=== PATIENT | female | born 1970 | race Caucasian/White ===

== ENCOUNTER → 2016-12-30 | Outpatient (CLI) | payer MEDICAID ==
--- NOTE | 2016-12-30 11:39 | P.STRESS ---
- Stress Test Note Stress Test Results/Findings: Exam Performed: stress echo exercise Exam Date: 12/30/16 Height: 5 ft 8 in Weight: 68.946 kg Protocol: STRESS ECHO Stage: 4 Duration of Exercise: 10:30 Resting Heart Rate: 93 Resting Blood Pressure: 135/70 Maximum Achieved Heart Rate: 161 Maximum Achieved Blood Pressure: 167/60 85% PMHR: 149 100% PMHR: 175 METS: 12.1 Technologist Comment: Stress Test Results/Findings: Baseline rhythm sinus mechanism with normal axis and intervals. Patient exercised for 10 minutes 30 seconds reaching a peak rate of 161 bpm, equal to 92 % maximum predicted heart rate. This was terminated secondary to fatigue, there was no chest pain. EKG monitoring showed no evidence of ST segment changes. Baseline echocardiogram shows a normal wall thickening and motion, at peak exercise there was normal wall motion augmentation with no hypokinesis or dyskinesis. Impression: 1. Average exercise tolerance with no evidence of EKG abnormalities. 2. Normal stress echocardiogram with no evidence of stress induced ischemia.
--- NOTE | 2016-12-30 12:05 | ECHOF ---
Referral Reason:R00.0 tachycardia MEASUREMENTS -------- HEIGHT: 172.7 cm WEIGHT: 68.9 kg BP: WallScoring: string WallScoring: string WallScoring: string FINDINGS -------- Utilizing the standard [place] protocol the patient was exercised for 10:30 minutes, seconds, achieving a maximum heart rate of 161, which is 92 % of predicted maximal heart rate. There was physiologic heart rate and blood pressure response to exercise. Max Heart Rate: 161 % of Max Predicted Heart Rate: 92% Rest Heart Rate: 93 Rest BP: 135/70 Max BP: 167/60 Mets Achieved: 12.1 The test was stopped because of fatigue. This level of exercise represents an average exercise tolerance for age. Sinus rhythm. In response to stress, the ECG showed no ST-T wave changes (see exercise report for details). In response to stress, the ECG showed no ST-T wave changes (see exercise report for details). There were normal blood pressure and heart rate responses to stress. LV size, wall thickness and systolic function are normal, with an EF of 60%. Echo images were acquired at peak stress which demonstrated appropriate augmentation of all left ventricular segments. CONCLUSIONS -------- 1. The test was stopped because of fatigue. 2. This level of exercise represents an average exercise tolerance for age. 3. LV size, wall thickness and systolic function are normal, with an EF of 60%. 4. Echo images were acquired at peak stress which demonstrated appropriate augmentation of all left ventricular segments. 5. XXX functional exercise capacity. No ECG or 2D echocardiographic evidence of inducible ischemia to achieved workload. REWRITER: Alison Ray RDCS
== END ==
LOC: RADNMMAIN 09:46
PROVIDERS: ATTEND Family Medicine
DX: R00.0 Tachycardia, unspecified (principal)
CPT/HCPCS: 93017; 93350

== ENCOUNTER 2017-01-02 18:41 | Observation (INO) | payer MEDICAID ==
[2017-01-02] MEDS ORDERED: ASPIRIN 81 MG CHEW PO STA (19:37)
[2017-01-02] MEDS ORDERED: SODIUM CHLORIDE 0.9% 1,000 ML IV ONE (19:37)
--- NOTE | 2017-01-02 19:51 | ED ---
General Adult HPI - General Chief complaint: Arrhythmia/Palpitations Stated complaint: rapid heart rate,coming from [facility] Time Seen by Provider: 01/02/17 19:31 Source: patient Mode of arrival: ambulatory Limitations: no limitations - History of Present Illness Initial comments: Deirdre Kwan is a 86-year-old female with past medical history of hypothyroid for which she is managed on to oral medications. She presents to the emergency department today for evaluation of palpitations and tachycardia. The patient reports that she has recently been following with her primary care physician due to an elevated heart rate, she had a stress test last week which she was told she performed well and, she has not gotten official results from the stress test. Patient reports that she was in her usual state of health today, she was at work when she began experiencing palpitations and epigastric burning sensation. Patient reports she was wearing a pulse monitor indicated her heart rate was up to 142 bpm. Patient reports she feels like her heart is gone down she continues to experience an epigastric burning sensation. She denies any shortness of breath , exertional chest pain, crushing retrosternal chest pain, or any pain that radiates to the shoulders or neck. Patient has never been seen by cardiology or diagnosed with an arrhythmia. She reports that her thyroid levels were checked last month and her thyroid medication dose was decreased. MD Complaint: palpitation -: hour(s) Consistency: constant Improves with: rest Associated Symptoms: denies other symptoms Treatments Prior to Arrival: none - Related Data Home Medications Medication Instructions Recorded Confirmed Thyroid,Pork [[place] Thyroid] 120 mg PO QAM 04/24/16 01/02/17 Albuterol Inhaler [Ventolin Hfa 1 puff INHALATION RT-QID PRN 01/02/17 01/02/17 Inhaler] Liothyronine Sodium [Cytomel] 50 mcg PO QAM 01/02/17 01/02/17 Omeprazole 40 mg PO AC-BRKFST 01/02/17 01/02/17 Ranitidine HCl [Zantac] 150 mg PO BID 01/02/17 01/02/17 Vitamin B Complex 1 cap PO DAILY 01/02/17 01/02/17 Allergies Allergy/AdvReac Type Severity Reaction Status Date / Time niacin AdvReac Flushing Verified 01/02/17 20:31 [From Niaspan Extended-Release] pheniramine AdvReac Increased Verified 01/02/17 20:31 [From Theraflu Sinus and Blood Cold] Pressure phenylephrine AdvReac Increased Verified 01/02/17 20:31 [From Theraflu Sinus and Blood Cold] Pressure Review of Systems ROS Statement: Those systems with pertinent positive or pertinent negative responses have been documented in the HPI. ROS Other: All systems not noted in ROS Statement are negative. Constitutional: Denies: fever, chills, weakness, weight change Eyes: Denies: vision change Respiratory: Denies: cough, dyspnea, wheezes Cardiovascular: Reports: palpitations. Denies: chest pain, dyspnea on exertion , edema, syncope Endocrine: Denies: fatigue Gastrointestinal: Reports: other (Epigastric abdominal pain, burning). Denies: nausea, vomiting Genitourinary: Denies: urgency, dysuria Musculoskeletal: Denies: back pain Skin: Denies: rash, lesions, change in color, change in hair/nails Neurological: Denies: headache, weakness Psychiatric: Denies: anxiety, depression Hematological/Lymphatic: Denies: easy bleeding, easy bruising Past Medical History Past Medical History: Asthma, Cancer, GERD/Reflux, Hypertension, Thyroid Disorder Additional Past Medical History / Comment(s): hiatal hernia, hx. skin cancer, IBS, diverticulitis, allergy induced asthma History of Any Multi-Drug Resistant Organisms: None Reported Past Surgical History: Cholecystectomy, Tubal Ligation, Uterine Ablation Additional Past Surgical History / Comment(s): sinus surgery Past Anesthesia/Blood Transfusion Reactions: No Reported Reaction Smoking Status: Current some day smoker - Past Family History Mother Family Medical History: No Reported History General Exam Limitations: no limitations General appearance: alert, anxious Head exam: Present: atraumatic, normocephalic, normal inspection Eye exam: Present: normal appearance, PERRL, EOMI. Absent: scleral icterus, conjunctival injection, periorbital swelling ENT exam: Present: normal exam, mucous membranes moist Neck exam: Present: normal inspection. Absent: tenderness, meningismus, lymphadenopathy Respiratory exam: Present: normal lung sounds bilaterally. Absent: respiratory distress, wheezes, rales, rhonchi, stridor Cardiovascular Exam: Present: normal rhythm, tachycardia GI/Abdominal exam: Present: soft, normal bowel sounds. Absent: distended, tenderness, guarding, rebound, rigid Rectal exam: Present: deferred Back exam: Present: normal inspection Neurological exam: Present: alert, oriented X3, CN II-XII intact Psychiatric exam: Present: normal affect, normal mood Skin exam: Present: warm, dry, intact, normal color. Absent: rash Course Vital Signs 01/02/17 18:49 Temperature 98.1 F Pulse Rate 122 H Respiratory 17 Rate Blood Pressure 175/103 O2 Sat by Pulse 97 Oximetry - Reevaluation(s) Reevaluation #1: Patient was reevaluated, heart rate continues to vary between high 90s and 110. He is hypertensive. Advised patient that she has significantly elevated thyroid 01/02/17 20:57 EKG Findings - EKG Comments: EKG Findings:: EKG performed at 1932. EKG rate 109 rhythm is sinus tachycardia , normal intervals, UT 164, QRS 72, QTc 455 there is no acute ST elevations or depressions. No evidence of acute right heart strain or arrhythmia. No evidence of acute ischemia or infarction Medical Decision Making - Medical Decision Making She was seen and evaluated Signs were reviewed, patient was tachycardic and hypertensive History was obtained from the patient History is concerning for hyperthyroidism given the patient has a history of hypothyroidism and is on multiple oral thyroid medications which have recently had to be lowered and has been experiencing intermittent palpitations EKG sinus tachycardia no evidence of arrhythmia Labs with a critically low TSH indicative of hyperthyroidism Troponin and D-dimer negative Patient care was discussed with Dr. Florez who accepts admission for the patient for hyperthyroidism with palpitations and tachycardia, he requests I consult to endocrinology Dr. Lori tate and attempts were made to contact Dr. Nunez from the emergency department, however office did not offer affording contact information and her cell phone number provided to the emergency department not the correct number A consult to Dr. Sandoval was placed for her to be notified in the morning Atenolol was ordered for treatment of tachycardia in the setting of hyperthyroidism Admission orders were placed - Lab Data Result diagrams: 01/02/17 19:46 01/02/17 19:46 Lab Results 01/02/17 01/02/17 01/02/17 Range/Units 19:46 19:46 19:46 WBC 8.5 (3.8-10.6) k/uL RBC 4.50 (3.80-5.40) m/uL Hgb 14.5 (11.4-16.0) gm/dL Hct 42.3 (34.0-46.0) % MCV 94.0 (80.0-100.0) fL MCH 32.3 (25.0-35.0) pg MCHC 34.3 (31.0-37.0) g/dL RDW 12.1 (11.5-15.5) % Plt Count 323 (150-450) k/uL Neutrophils % 67 % Lymphocytes % 21 % Monocytes % 6 % Eosinophils % 3 % Basophils % 0 % Neutrophils # 5.7 (1.3-7.7) k/uL Lymphocytes # 1.8 (1.0-4.8) k/uL Monocytes # 0.5 (0-1.0) k/uL Eosinophils # 0.2 (0-0.7) k/uL Basophils # 0.0 (0-0.2) k/uL PT 10.7 (9.0-12.0) sec INR 1.1 (<1.2) APTT 24.3 (22.0-30.0) sec D-Dimer <0.17 (<0.60) mg/L FEU Sodium 142 (137-145) mmol/L Potassium 4.9 (3.5-5.1) mmol/L Chloride 105 (98-107) mmol/L Carbon Dioxide 26 (22-30) mmol/L Anion Gap 11 mmol/L BUN 17 (7-17) mg/dL Creatinine 0.70 (0.52-1.04) mg/dL Est GFR (MDRD) Af Amer >60 (>60 ml/min/1.73 sqM) Est GFR (MDRD) Non-Af >60 (>60 ml/min/1.73 sqM) Glucose 91 (74-99) mg/dL Calcium 9.9 (8.4-10.2) mg/dL Troponin I (0.000-0.034) ng/mL TSH <0.015 L (0.465-4.680) mIU/L Urine Color Urine Appearance (Clear) Urine pH (5.0-8.0) Ur Specific [place] (1.001-1.035) Urine Protein (Negative) Urine Glucose (UA) (Negative) Urine Ketones (Negative) Urine Blood (Negative) Urine Nitrite (Negative) Urine Bilirubin (Negative) Urine Urobilinogen (<2.0) mg/dL Ur Leukocyte Esterase (Negative) Urine RBC (0-5) /hpf Urine WBC (0-5) /hpf Ur Squamous Epith Cells (0-4) /hpf Urine Bacteria (None) /hpf Urine HCG, Qual (Not Detectd) 01/02/17 01/02/17 01/02/17 Range/Units 19:46 19:49 19:49 WBC (3.8-10.6) k/uL RBC (3.80-5.40) m/uL Hgb (11.4-16.0) gm/dL Hct (34.0-46.0) % MCV (80.0-100.0) fL MCH (25.0-35.0) pg MCHC (31.0-37.0) g/dL RDW (11.5-15.5) % Plt Count (150-450) k/uL Neutrophils % % Lymphocytes % % Monocytes % % Eosinophils % % Basophils % % Neutrophils # (1.3-7.7) k/uL Lymphocytes # (1.0-4.8) k/uL Monocytes # (0-1.0) k/uL Eosinophils # (0-0.7) k/uL Basophils # (0-0.2) k/uL PT (9.0-12.0) sec INR (<1.2) APTT (22.0-30.0) sec D-Dimer (<0.60) mg/L FEU Sodium (137-145) mmol/L Potassium (3.5-5.1) mmol/L Chloride (98-107) mmol/L Carbon Dioxide (22-30) mmol/L Anion Gap mmol/L BUN (7-17) mg/dL Creatinine (0.52-1.04) mg/dL Est GFR (MDRD) Af Amer (>60 ml/min/1.73 sqM) Est GFR (MDRD) Non-Af (>60 ml/min/1.73 sqM) Glucose (74-99) mg/dL Calcium (8.4-10.2) mg/dL Troponin I <0.012 (0.000-0.034) ng/mL TSH (0.465-4.680) mIU/L Urine Color Light Yellow Urine Appearance Cloudy H (Clear) Urine pH 5.5 (5.0-8.0) Ur Specific [place] 1.007 (1.001-1.035) Urine Protein Negative (Negative) Urine Glucose (UA) Negative (Negative) Urine Ketones Negative (Negative) Urine Blood Trace H (Negative) Urine Nitrite Negative (Negative) Urine Bilirubin Negative (Negative) Urine Urobilinogen <2.0 (<2.0) mg/dL Ur Leukocyte Esterase Negative (Negative) Urine RBC 1 (0-5) /hpf Urine WBC 2 (0-5) /hpf Ur Squamous Epith Cells 7 H (0-4) /hpf Urine Bacteria Rare H (None) /hpf Urine HCG, Qual Not Detected (Not Detectd) Disposition Clinical Impression: Hyperthyroidism, Palpitations, Sinus tachycardia Disposition: ADMITTED IP TO THIS [facility] Condition: Good Referrals: Maycol Nash MD [Primary Care Provider] - 1-2 days
[2017-01-02 20:03] LABS: Basophils % (A) 0 %; CH 31.7; CHCM 33.8; Eosinophils # (A) 0.2 k/uL (0-0.7); Eosinophils % (A) 3 %; HCT 42.3 % (34.0-46.0); HDW 2.34; HGB 14.5 gm/dL (11.4-16.0); Luc # (Auto) 0.28; Luc % (Auto) 3; Lymphocytes # (A) 1.8 k/uL (1.0-4.8); Lymphocytes % (A) 21 %; MCH 32.3 pg (25.0-35.0); MCHC 34.3 g/dL (31.0-37.0); Mean Platelet Volume 7.2; Monocytes # (A) 0.5 k/uL (0-1.0); Monocytes % (A) 6 %; Neutrophils # (A) 5.7 k/uL (1.3-7.7); Neutrophils % (A) 67 %; RDW 12.1 % (11.5-15.5); WBC 8.5 k/uL (3.8-10.6); WBC (Perox) 8.35
[2017-01-02 20:13] LABS: Anion Gap 11 mmol/L; Blood Urea Nitrogen 17 mg/dL (7-17); Calcium 9.9 mg/dL (8.4-10.2); Carbon Dioxide 26 mmol/L (22-30); Chloride 105 mmol/L (98-107); Glucose 91 mg/dL (74-99); Non-African American GFR(MDRD) >60 (>60 ml/min/1.73 sqM); Potassium 4.9 mmol/L (3.5-5.1); Sodium 142 mmol/L (137-145)
[2017-01-02 20:18] LABS: INR 1.1 (<1.2); Partial Thromboplastin Time 24.3 sec (22.0-30.0); Prothrombin Time 10.7 sec (9.0-12.0)
[2017-01-02 20:25] LABS: Appearance,Urine Cloudy (Clear); Bacteria,Urine Rare /hpf; Bilirubin,Urine Negative (Negative); Glucose,Urine (UA) Negative (Negative); Ketones,Urine Negative (Negative); Leukocyte Esterase,Urine Negative (Negative); Nitrite,Urine Negative (Negative); PH, Urine 5.5 (5.0-8.0); Particle Count 2352; Protein,Urine Negative (Negative); RBC,Urine 1 /hpf (0-5); Specific Gravity,Urine 1.007 (1.001-1.035); Squamous Epithelial Cell,Urine 7 /hpf (0-4); UA Billing (MACRO vs. MICRO) MICRO; Urobilinogen,Urine <2.0 mg/dL (<2.0); WBC,Urine 2 /hpf (0-5)
[2017-01-02] MEDS ORDERED: NALOXONE 0.4 MG/ML 1 ML VIAL IV PRN (21:00)
[2017-01-02] MEDS ORDERED: ATENOLOL 25 MG TAB PO STA (21:07)
--- NOTE | 2017-01-02 22:02 | XR ---
EXAMINATION TYPE: XR chest 2V DATE OF EXAM: 01/02/2017 COMPARISON: 12/08/2013 HISTORY: Pain TECHNIQUE: Frontal and lateral views of the chest are obtained. FINDINGS: There is no focal air space opacity, pleural effusion, or pneumothorax seen. The cardiac silhouette size is within normal limits. The osseous structures are intact. IMPRESSION: No acute cardiopulmonary process.
[2017-01-02 22:17] VITALS: BMI 23.1
[2017-01-03 08:28] VITALS: RESP 16
[2017-01-03] MEDS ORDERED: PANTOPRAZOLE 40 MG TABLET PO SCH (09:15)
[2017-01-03] MEDS ORDERED: THYROID, PORK 30 MG TAB PO SCH (09:15)
--- NOTE | 2017-01-03 11:26 | US ---
EXAMINATION TYPE: US thyroid st tissue head/neck DATE OF EXAM: 01/03/2017 COMPARISON: Thyroid ultrasound September 05, 2015 CLINICAL HISTORY: thyroid levels and symptoms. Hyperthyroid, pt currently on meds GLAND SIZE: Right Lobe: 5.8 x 1.8 x 2.0 cm Overall Parenchyma: heterogenous Left Lobe: 5.1 x 1.7 x 1.5 cm Overall Parenchyma: heterogeneous Isthmus Thickness: 0.4 cm Bilateral neck scanned, no evidence of lymphadenopathy. Heterogeneous thyroid bilaterally as seen on previous exams Heterogeneous slightly enlarged thyroid gland is redemonstrated without discrete solid or cystic nodu les seen. IMPRESSION: Overall stable findings, heterogeneous slightly enlarged thyroid without focal suspicious solid or cy stic nodule.
[2017-01-03 12:18] VITALS: BP 113/59; PULSE 58; TEMP 97.9
--- NOTE | 2017-01-03 14:09 | P.HPIM ---
History of Present Illness H&P Date: 01/03/17 Chief Complaint: Restless This is a 46-year-old patient of Dr. Nash. Patient chronic stable medical conditions include GERD, asthma, hiatal hernia, irritable bowel syndrome. Patient is a long-standing history of hypothyroidism. He did follow up with Dr. Magaly Mark and Dr. Nunez from endocrinology previously but Dr. Nash has been monitoring her thyroid status.. she is on both levothyroxine and Cytomel, and about a month ago her dose of Cytomel was cut back and half to 50 from 100. Patient presents with palpitations and tachycardia. Her heart rate had worked did go up 140. Patient for the longest time has not been sleeping well and barely gets in any way 4-6 hours. That too well. Patient is on her cell phone that is smart phone quite a bit. She lost about 65 pounds in the last 1 year some of that voluntarily from August of last year to August of this year. Since August her weight has remained stable. Patient just feels jittery agitated and restless. Patient also drinks a glass of wine at night. Does about 4-5 cigarettes a day. Significant past history: Asthma, GERD, hypothyroid, hiatal hernia, it irritable bowel syndrome. Review of Systems GEN.: Tired EYES: None HEENT: None NECK: None RESPIRATORY: None CARDIOVASCULAR: Palpitation GASTROINTESTINAL: . Vital bowel pattern GENITOURINARY: None MUSCULOSKELETAL: None LYMPHATICS: None HEMATOLOGICAL: None PSYCHIATRY: Anxious NEUROLOGICAL: Occasional tremors and sleeplessness Past Medical History Past Medical History: Asthma, Cancer, GERD/Reflux, Hypertension, Thyroid Disorder Additional Past Medical History / Comment(s): hiatal hernia, hx. skin cancer, IBS, diverticulitis, allergy induced asthma History of Any Multi-Drug Resistant Organisms: None Reported Past Surgical History: Cholecystectomy, Tubal Ligation, Uterine Ablation Additional Past Surgical History / Comment(s): sinus surgery Past Anesthesia/Blood Transfusion Reactions: No Reported Reaction Past Psychological History: No Psychological Hx Reported Smoking Status: Current every day smoker Past Alcohol Use History: None Reported Past Drug Use History: None Reported - Past Family History Mother Family Medical History: No Reported History Additional Family Medical History / Comment(s): Triple bypass Father Additional Family Medical History / Comment(s): Pacer Medications and Allergies Home Medications Medication Instructions Recorded Confirmed Type Thyroid,Pork [[place] Thyroid] 120 mg PO QAM 04/24/16 01/02/17 History Albuterol Inhaler [Ventolin Hfa 1 puff INHALATION RT-QID PRN 01/02/17 01/02/17 History Inhaler] Liothyronine Sodium [Cytomel] 50 mcg PO QAM 01/02/17 01/02/17 History Omeprazole 40 mg PO AC-BRKFST 01/02/17 01/02/17 History Ranitidine HCl [Zantac] 150 mg PO BID 01/02/17 01/02/17 History Vitamin B Complex 1 cap PO DAILY 01/02/17 01/02/17 History Allergies Allergy/AdvReac Type Severity Reaction Status Date / Time niacin AdvReac Flushing Verified 01/02/17 22:10 [From Niaspan Extended-Release] pheniramine AdvReac Increased Verified 01/02/17 22:10 [From Theraflu Sinus and Blood Cold] Pressure phenylephrine AdvReac Increased Verified 01/02/17 22:10 [From Theraflu Sinus and Blood Cold] Pressure Physical Exam Vitals: Vital Signs Temp Pulse Pulse Pulse Pulse Pulse Resp 01/03/17 12:00 97.9 F 63 70 58 L 16 01/03/17 08:00 98.1 F 72 16 01/03/17 04:00 18 01/03/17 03:48 97.7 F 76 18 01/02/17 23:45 18 01/02/17 22:49 18 01/02/17 22:33 97.8 F 103 H 18 01/02/17 21:14 97.8 F 94 18 01/02/17 18:49 98.1 F 122 H 17 BP BP BP BP BP Pulse Ox 01/03/17 12:00 116/70 129/77 113/59 98 01/03/17 08:00 107/58 96 01/03/17 04:00 01/03/17 03:48 112/54 96 01/02/17 23:45 01/02/17 22:49 01/02/17 22:33 133/74 97 01/02/17 21:14 151/67 99 01/02/17 18:49 175/103 97 Intake and Output VITAL SIGNS: Reviewed. BMI noted GENERAL: Average built, sitting up, anxious appearing. EYES: Pupils equal. Conjunctiva normal. HEENT: External appearance of nose and ears normal, oral cavity grossly normal. NECK: JVD not raised; masses not palpable. HEART: First and second heart sounds are normal; no edema. LUNGS: Respiratory rate normal; clear to auscultation. ABDOMEN: Soft, nontender, liver spleen not palpable, no masses palpable. LYMPHATICS: No lymph nodes palpable in the axilla and neck. PSYCH: Alert and oriented x3; mood and affect anxious appearingl. NEUROLOGICAL: Cranial nerves grossly intact; no facial asymmetry, power and sensation grossly intact, mild tremor of the outstretched hands, no exophthalmos. Results CBC & Chem 7: 01/02/17 19:46 01/02/17 19:46 Labs: White count 8.5, hemoglobin 14.5, potassium 4.9, BUN/creatinine normal Troponin negative TSH less than 0.015 free T4 0.67 that is on the low side EKG shows sinus tachycardia Assessment and Plan Plan: Assessment: -Hyper thyroidism from over replacement with levothyroxine, but associated symptoms of palpitations and tachycardia anxiety, tremors. It may be noted that patient's free T4 is on the lower side and some keep the same dose of Cytomel. Given that the TSH is also low but cut back on patient's of levothyroxine. -Chronic sleep deprivation with poor sleep hygiene leading to exertion -GERD -Hiatal hernia -Irritable bowel syndrome -Intermittent asthma controlled Plan: Patient be kept on a monitor. Does of levothyroxine that back to 100. We'll skip the dose today and tomorrow. We'll keep the patient on same dose of Cytomel. We'll have the patient follow-up with a family doctor in about 2 weeks ' time. Discussed extensively with the patient about sleep hygiene including not being on a smart phone at night. Care was discussed with the patient and her friend at the bedside. Questions were answered.
[2017-01-04] MEDS ORDERED: ENOXAPARIN 40 MG/0.4 ML SYRINGE SQ SCH (09:00)
--- NOTE | 2017-01-04 11:28 | P.DS ---
Providers Date of admission: 01/02/17 21:11 Expected date of discharge: 01/03/17 Attending physician: Perry Florez Consults: 01/02/17 20:59 Consult Physician Urgent Consulting Provider: Padmini Sandoval Consult Reason/Comments: hyperthyroid, tachycardia Do you want consulting provider notified?: Yes, Notify in am Primary care physician: Maycol Nash [facility] Course: This is a 46-year-old patient of Dr. Nash. Patient chronic stable medical conditions include GERD, asthma, hiatal hernia, irritable bowel syndrome. Patient is a long-standing history of hypothyroidism. He did follow up with Dr. Ananth Mark and Dr. Sandoval from endocrinology previously but patient decided against following with them and now follows with her PCP /Dr. Nash has been monitoring her thyroid status.. she is on both levothyroxine and Cytomel, and about a month ago her dose of Cytomel was cut back half to 50 from 100. Patient presents with palpitations and tachycardia. Her heart rate had worked did go up 140. Patient for the longest time has not been sleeping well and barely gets in about 4-6 hours. Patient is on her cell phone that is smart phone quite a bit. She lost about 65 pounds in the last 1 year some of that voluntarily from August of last year to August of this year. Since August her weight has remained stable. Patient just feels jittery agitated and restless. Patient also drinks a glass of wine at night. Does smoke about 4-5 cigarettes a day Patient's TSH came back as less than 0.0015 and free T4 was low at 0.67. Had a very lengthy discussion with the patient. At this point and decided to cut back on the levothyroxine 200 g a day. Patient should have a repeat thyroid function tested in about 3-4 weeks. Had a very lengthy discussion about sleep hygiene. EKG showed sinus tachycardia. On examination: Lungs are clear. Cardiovascular first seconds are normal. Psych anxious appearing. Final diagnoses: -Hyper thyroidism from over replacement with levothyroxine, with associated symptoms of palpitations and tachycardia anxiety, tremors. It may be noted that patient's free T4 is on the lower side and hence will keep the same dose of Cytomel. Given that the TSH is also low but cut back on patient's of levothyroxine. -Chronic sleep deprivation with poor sleep hygiene leading to exhaustion -GERD -Hiatal hernia -Irritable bowel syndrome -Intermittent asthma controlled Patient Condition at Discharge: Good Plan - Discharge Summary New Discharge Prescriptions: New Thyroid,Pork [[place] Thyroid] 90 mg PO DAILY #30 tab Continue Vitamin B Complex 1 cap PO DAILY Albuterol Inhaler [Ventolin Hfa Inhaler] 1 puff INHALATION RT-QID PRN PRN Reason: Dyspnea Omeprazole 40 mg PO AC-BRKFST Liothyronine Sodium [Cytomel] 50 mcg PO QAM Discontinued Thyroid,Pork [[place] Thyroid] 120 mg PO QAM Ranitidine HCl [Zantac] 150 mg PO BID Discharge Medication List Albuterol Inhaler [Ventolin Hfa Inhaler] 1 puff INHALATION RT-QID PRN 01/02/17 [ History] Liothyronine Sodium [Cytomel] 50 mcg PO QAM 01/02/17 [History] Omeprazole 40 mg PO AC-BRKFST 01/02/17 [History] Vitamin B Complex 1 cap PO DAILY 01/02/17 [History] Thyroid,Pork [[place] Thyroid] 90 mg PO DAILY #30 tab 01/03/17 [Rx] Follow up Appointment(s)/Referral(s): Maycol Nash MD [Primary Care Provider] - 1 Week Patient Instructions/Handouts: Hyperthyroidism (GEN) Activity/Diet/Wound Care/Special Instructions: resume new dose of levothyroxine from thursday Discharge Disposition: HOME SELF-CARE
== END 2017-01-03 14:50 | disposition home or self-care (01) ==
LOC: EC 18:41 → 3OBS 21:11
PROVIDERS: ADMIT Hospitalist; ATTEND Hospitalist
DX: E05.00 Thyrotoxicosis with diffuse goiter without thyrotoxic crisis or storm (principal); R00.2 Palpitations; R00.0 Tachycardia, unspecified; F41.9 Anxiety disorder, unspecified; R25.1 Tremor, unspecified; Z72.820 Sleep deprivation; K21.9 Gastro-esophageal reflux disease without esophagitis; K44.9 Diaphragmatic hernia without obstruction or gangrene; J45.20 Mild intermittent asthma, uncomplicated; R45.1 Restlessness and agitation; E03.9 Hypothyroidism, unspecified; I10 Essential (primary) hypertension; J45.909 Unspecified asthma, uncomplicated; K58.9 Irritable bowel syndrome, unspecified; K57.92 Diverticulitis of intestine, part unspecified, without perforation or abscess without bleeding; Z85.828 Personal history of other malignant neoplasm of skin; Z88.8 Allergy status to other drugs, medicaments and biological substances; Z79.899 Other long term (current) drug therapy; Z90.49 Acquired absence of other specified parts of digestive tract; F17.210 Nicotine dependence, cigarettes, uncomplicated
CPT/HCPCS: 99285 ×2; 36415; 93005; 85379; 84439; 83880; 80048; 84443; 84484; 85025; 85610; 85730; 81001; 81025; 71020; 76536; G0378 ×2

== ENCOUNTER → 2017-04-29 | Outpatient (CLI) | payer MEDICAID ==
[2017-04-29 08:24] LABS: Basophils # (A) 0.1 k/uL (0-0.2); Basophils % (A) 1 %; CH 33.5; Eosinophils # (A) 0.2 k/uL (0-0.7); Eosinophils % (A) 3 %; HCT 44.9 % (34.0-46.0); HDW 2.11; HGB 14.2 gm/dL (11.4-16.0); Luc # (Auto) 0.16; Luc % (Auto) 2; Lymphocytes # (A) 1.8 k/uL (1.0-4.8); Lymphocytes % (A) 20 %; MCH 33.3 pg (25.0-35.0); MCHC 31.7 g/dL (31.0-37.0); MCV 105.2 fL (80.0-100.0); Macrocytosis Slight; Mean Platelet Volume 6.5; Monocytes # (A) 0.5 k/uL (0-1.0); Monocytes % (A) 6 %; Neutrophils # (A) 6.4 k/uL (1.3-7.7); Neutrophils % (A) 69 %; RBC 4.26 m/uL (3.80-5.40); RDW 12.5 % (11.5-15.5); WBC 9.2 k/uL (3.8-10.6); WBC (Perox) 9.54
[2017-04-29 09:54] LABS: ALT 52 U/L (9-52); AST 32 U/L (14-36); Alkaline Phosphatase 88 U/L (38-126); Anion Gap 7 mmol/L; Blood Urea Nitrogen 19 mg/dL (7-17); Calcium 9.3 mg/dL (8.4-10.2); Carbon Dioxide 26 mmol/L (22-30); Chloride 105 mmol/L (98-107); Cholesterol 239 mg/dL (<200); Glucose 93 mg/dL (74-99); HDL Cholesterol 87 mg/dL (40-60); Non-African American GFR(MDRD) >60 (>60 ml/min/1.73 sqM); Potassium 4.7 mmol/L (3.5-5.1); Sodium 138 mmol/L (137-145); Total Bilirubin 0.6 mg/dL (0.2-1.3); Total Protein 7.1 g/dL (6.3-8.2)
== END | disposition home or self-care (01) ==
LOC: LABWHC1 07:42
PROVIDERS: ATTEND Family Medicine
DX: Z00.00 Encounter for general adult medical examination without abnormal findings (principal); E03.9 Hypothyroidism, unspecified; E89.41 Symptomatic postprocedural ovarian failure
CPT/HCPCS: 36415; 80053; 80061; 82040; 82626; 82672; 84270; 84403; 84439; 84443; 84481; 85025

== ENCOUNTER → 2017-05-20 | Outpatient (CLI) | payer MEDICAID | END | disposition home or self-care (01) | LOC: LABWHC1 07:17 | PROVIDERS: ATTEND Family Medicine | DX: E05.90 Thyrotoxicosis, unspecified without thyrotoxic crisis or storm (principal); E89.41 Symptomatic postprocedural ovarian failure | CPT/HCPCS: 36415; 82626; 84439; 84443 ==

== ENCOUNTER → 2017-06-08 | Outpatient (CLI) | payer MEDICAID ==
--- NOTE | 2017-06-08 12:04 | US ---
EXAMINATION TYPE: US abdomen complete DATE OF EXAM: 06/08/2017 COMPARISON: 10/19/2011 CLINICAL HISTORY: 47-year-old female E89.41 POSTPROCEDURAL OVARIAN FAILURE,E34.9 ENDOCRINE DISORDER. TECHNIQUE: Multiple sonographic images of the abdomen are obtained. FINDINGS: Liver Length: 17.5 cm Gallbladder: surgically absent CBD: 0.5 cm Spleen: 9.8 cm Right Kidney: 12.0 x 5.6 x 5.3 cm Left Kidney: 12.3 x 6.0 x 4.9 cm Pancreas: Only a small portion of the pancreatic neck and body are visualized. Remainder suboptimall y visualized due to shadowing from bowel gas. Liver: There is a 1.9 x 1.6 echogenic lesion in the posterior right hepatic lobe. No other focal les ion is seen. A similar 1.5 cm lesion was present back in 2011. Findings suggest a benign hemangioma which is slightly increased in size. Gallbladder: Surgically absent Evidence for sonographic Allen's sign: No CBD: wnl Spleen: wnl Right Kidney: No hydronephrosis. Left Kidney: No hydronephrosis . Upper IVC: wnl Abd Aorta: wnl IMPRESSION: 1. A 1.9 cm echogenic lesion posterior right liver lobe suggestive of a benign hemangioma, minimally enlarged from 2012. 2. Status post cholecystectomy. No biliary ductal dilatation.
--- NOTE | 2017-06-08 12:24 | US ---
EXAMINATION TYPE: US pelvic complete DATE OF EXAM: 06/08/2017 COMPARISON: NONE CLINICAL HISTORY: 47-year-old female E89.41 POSTPROCEDURAL OVARIAN FAILURE,E34.9 ENDOCRINE DISORDER. History of 'tubal ablation' per patient, DHEA levels elevated TECHNIQUE: Transabdominal (TA) Findings: Uterus: Anteroverted and retroflexed measuring 9.1 x 4.2 x 5.4 cm. The myometrium is mildly heterogen eous. Endometrial stripe is thin and difficult to clearly delineate. It is measured at 2.8 mm on transverse images. Right Ovary: 2.8 x 2.0 x 2.7 cm for a volume of 7.6 mL Left Ovary: 2.8 x 1.7 x 2.8 cm for a volume of 6.7 mL. No evident adnexal abnormality or cul-de-sac free fluid. IMPRESSION: 1. Endometrial stripe is very thin and difficult to clearly delineate. Query history of prior endomet rial ablation. Patient reports a tubal ablation. 2. Normal-sized ovaries. No pelvic free fluid.
== END | disposition home or self-care (01) ==
LOC: RADUSWWP 09:03
PROVIDERS: ATTEND Family Medicine
DX: K76.9 Liver disease, unspecified (principal); E34.9 Endocrine disorder, unspecified; Z98.890 Other specified postprocedural states; Z90.49 Acquired absence of other specified parts of digestive tract
CPT/HCPCS: 76700; 76856

== ENCOUNTER → 2017-07-10 | Outpatient (CLI) | payer MEDICAID | END | disposition home or self-care (01) | LOC: LABWHC1 13:01 | PROVIDERS: ATTEND Otolaryngology Facial Plastic Surgery | DX: M35.00 Sjogren syndrome, unspecified (principal) | CPT/HCPCS: 36415; 86235 ==

== ENCOUNTER → 2017-07-14 | Outpatient (CLI) | payer MEDICAID ==
--- NOTE | 2017-07-15 13:42 | MM ---
Reason for exam: screening (asymptomatic). Last mammogram was performed 1 year and 10 months ago. History: Patient has history of other cancer at age 43. Took hormonal contraceptives for 7 years beginning at age 21. Taking other hormone. Physical Findings: A clinical breast exam by your physician is recommended on an annual basis and results should be correlated with mammographic findings. MG 3D Screening Mammo W/Cad Bilateral CC and MLO view(s) were taken. Prior study comparison: September 24, 2015, bilateral MG work up mamm w CAD BILAT. September 12, 2015, bilateral MG screening mammo w CAD. March 09, 2014, bilateral MG diagnostic mammo w CAD UVALDO. The breast tissue is heterogeneously dense. This may lower the sensitivity of mammography. Finding: There are a few typically benign round calcifications in both breasts. There is no discrete abnormality. ASSESSMENT: Benign, BI-RAD 2 RECOMMENDATION: Routine screening mammogram of both breasts in 1 year.
== END | disposition home or self-care (01) ==
LOC: RADMAMWWP 06:50
PROVIDERS: ATTEND Obstetrics & Gynecology
DX: Z12.31 Encounter for screening mammogram for malignant neoplasm of breast (principal)
CPT/HCPCS: 77063; 77067

== ENCOUNTER → 2017-07-17 | Outpatient (CLI) | payer MEDICAID ==
--- NOTE | 2017-07-17 09:42 | CT ---
EXAMINATION TYPE: CT sinus wo con DATE OF EXAM: 07/17/2017 COMPARISON: 02/14/2010 HISTORY: chronic sinusitis CT DLP: 588 mGycm. Automated Exposure Control for Dose Reduction was Utilized. TECHNIQUE: CT scan of the sinuses is performed without contrast, axial images are obtained, coronal r eformatted images are also reviewed. FINDINGS: Bilateral antrostomy defects are seen. There is mild left and scant right maxillary mucosal thickening and mild ethmoidal mucosal thickening. The frontal sinuses are well aerated. There is ant erior left nasal septal deviation and a small 1 to 2 mm nasal septal spur. There is moderate circumfe rential mucosal thickening of the sphenoid sinus. High density is seen on soft tissue windows within the sphenoid sinus mucosal thickening suggestive of an atypical etiology such as fungal infection. Ma stoid air cells and middle ear cavities are well aerated. Scant atherosclerosis is seen at the supraclinoid portions of the internal carotid arteries bilateral ly. The calvarium is intact. The ostiomeatal complexes are patent bilaterally. The globes are intact. Extraocular muscles are symmetric. Lenses are in place. There is right inferior nasal turbinate muco danielle hypertrophy. Exam is not optimized for evaluation of the intracranial structures. IMPRESSION: 1. Similar-appearing moderate chronic sinusitis with postsurgical changes of the sinuses. High densit y is seen circumferentially within the sphenoid sinus suggestive of atypical infection such as fungal infection. 2. Ostiomeatal complexes, surgically widened, are patent. 3. Right inferior nasal turbinate mucosal hypertrophy. 4. Anterior leftward nasal septal deviation.
== END | disposition home or self-care (01) ==
LOC: RADCTMAIN 07:33
PROVIDERS: ATTEND Otolaryngology Facial Plastic Surgery
DX: J32.9 Chronic sinusitis, unspecified (principal); J34.3 Hypertrophy of nasal turbinates; J34.2 Deviated nasal septum; Z98.890 Other specified postprocedural states
CPT/HCPCS: 70486

== ENCOUNTER → 2017-10-12 | Outpatient (CLI) | payer MEDICAID ==
[2017-10-12 09:37] LABS: Basophils % (A) 0 %; Eosinophils # (A) 0.3 k/uL (0-0.7); Eosinophils % (A) 4 %; HCT 44.7 % (34.0-46.0); HGB 14.2 gm/dL (11.4-16.0); Lymphocytes # (A) 1.8 k/uL (1.0-4.8); Lymphocytes % (A) 24 %; MCH 31.5 pg (25.0-35.0); MCHC 31.7 g/dL (31.0-37.0); MCV 99.3 fL (80.0-100.0); Mean Platelet Volume 7.6; Monocytes # (A) 0.6 k/uL (0-1.0); Monocytes % (A) 7 %; Neutrophils # (A) 4.5 k/uL (1.3-7.7); Neutrophils % (A) 61 %; Platelet Count 393 k/uL (150-450); Prothrombin Time 9.8 sec (9.0-12.0); RDW 12.5 % (11.5-15.5); WBC 7.3 k/uL (3.8-10.6)
[2017-10-12 09:55] LABS: ALT 61 U/L (9-52); AST 34 U/L (14-36); Albumin 4.3 g/dL (3.5-5.0); Alkaline Phosphatase 112 U/L (38-126); Anion Gap 16 mmol/L; Blood Urea Nitrogen 14 mg/dL (7-17); Calcium 9.6 mg/dL (8.4-10.2); Carbon Dioxide 26 mmol/L (22-30); Chloride 100 mmol/L (98-107); Glucose 98 mg/dL (74-99); Potassium 4.8 mmol/L (3.5-5.1); Sodium 142 mmol/L (137-145); Total Bilirubin 0.6 mg/dL (0.2-1.3); Total Protein 7.4 g/dL (6.3-8.2)
[2017-10-12 10:03] LABS: T4, Free (Free Thyroxine) 1.55 ng/dL (0.78-2.19)
[2017-10-12 17:24] LABS: DHEA Sulfate 203.6 ug/dL (26.0-430.0)
[2017-10-13 11:38] LABS: Anti-Thrombin III Activity 105 % (79-109)
[2017-10-15 21:45] LABS: Testosterone, Free, LC/MS/MS 3.4 pg/mL (0.2-5.0)
== END | disposition home or self-care (01) ==
LOC: LABWHC1 06:59
PROVIDERS: ATTEND Family Medicine
DX: E03.9 Hypothyroidism, unspecified (principal); R04.0 Epistaxis; E89.41 Symptomatic postprocedural ovarian failure
CPT/HCPCS: 36415; 80053; 82040; 82626; 82627; 82672; 84270; 84403; 84439; 84443; 85025; 85245; 85300; 85610; 86038

== ENCOUNTER → 2018-03-05 | Outpatient (CLI) | payer MEDICAID ==
--- NOTE | 2018-03-05 13:52 | US ---
EXAMINATION TYPE: US axilla LT DATE OF EXAM: 03/05/2018 COMPARISON: US 2013, mammogram 07/14/2017 CLINICAL HISTORY: R59.0 Localized enlarged lymph nodes. Palpable left axilla and fullness at 1:00 zon e BC Couple of axillary nodes seen in left axilla with larger node = 1.6 x1.3 x 0.8cm. Dense breast tissue seen at 1:00 zone BC. IMPRESSION: 1. Axillary adenopathy, appears otherwise unremarkable. 2. Benign findings. Recommendations: 1. Clinical management of palpable fullness.
== END | disposition home or self-care (01) ==
LOC: RADUSWWP 07:37
PROVIDERS: ATTEND Family Medicine
DX: R59.0 Localized enlarged lymph nodes (principal)

== ENCOUNTER → 2018-05-11 | Outpatient (CLI) | payer MEDICAID ==
[2018-05-11 19:07] LABS: T4, Free (Free Thyroxine) 1.7 ng/dL (0.80-1.80)
== END | disposition home or self-care (01) ==
LOC: LABWHC1 09:30
PROVIDERS: ATTEND Family Medicine
DX: N95.1 Menopausal and female climacteric states (principal); E03.9 Hypothyroidism, unspecified
CPT/HCPCS: 36415; 82672; 84270; 84402; 84439; 84443

== ENCOUNTER → 2018-07-27 | Outpatient (CLI) | payer MEDICAID ==
--- NOTE | 2018-07-27 13:55 | US ---
EXAMINATION TYPE: US abdomen complete DATE OF EXAM: 07/27/2018 COMPARISON: US CLINICAL HISTORY: C22.9 malignant neoplasm of liver. Liver lesion. EXAM MEASUREMENTS: Liver Length: 10.2 cm Gallbladder Wall: Surgically absent cm CBD: 0.5 cm Spleen: 9.9 cm Right Kidney: 11.7 x 4.3 x 5.2 cm Left Kidney: 12.3 x 5.3 x 5.5 cm Pancreas: Tail obscured by overlying bowel gas Liver: echogenic lesion rt lobe measures 1.4 x 1.2 x 1.6 cm Gallbladder: Surgically absent CBD: wnl Spleen: wnl Right Kidney: No hydronephrosis or masses seen Left Kidney: No hydronephrosis or masses seen Upper IVC: wnl Abd Aorta: wnl IMPRESSION: 1. Echogenic foci within the liver may be a hemangioma. CT with contrast could be performed for addit ional evaluation. 2. Right upper quadrant ultrasound is otherwise unremarkable.
== END | disposition home or self-care (01) ==
LOC: RADUSWWP 06:50
PROVIDERS: ATTEND Family Medicine
DX: C22.9 Malignant neoplasm of liver, not specified as primary or secondary (principal)
CPT/HCPCS: 76700

== ENCOUNTER → 2018-07-31 | Outpatient (CLI) | payer MEDICAID ==
--- NOTE | 2018-07-31 09:00 | XR ---
EXAMINATION TYPE: XR chest 2V DATE OF EXAM: 07/31/2018 COMPARISON: Chest radiograph 01/02/2017 HISTORY: Cough TECHNIQUE: Frontal and lateral views of the chest are obtained. FINDINGS: There is no focal air space opacity, pleural effusion, or pneumothorax seen. The cardiac silhouette size is within normal limits. The osseous structures are intact. IMPRESSION: No acute cardiopulmonary process. No significant interval change.
[2018-07-31 09:12] LABS: Appearance,Urine Clear (Clear); Bacteria,Urine Rare /hpf; Bilirubin,Urine Negative (Negative); Blood,Urine Small (Negative); Color,Urine Yellow; Glucose,Urine (UA) Negative (Negative); Ketones,Urine Negative (Negative); Leukocyte Esterase,Urine Small (Negative); Mucus,Urine Occasional /hpf; Nitrite,Urine Negative (Negative); Protein,Urine Negative (Negative); RBC,Urine 20 /hpf (0-5); Specific Gravity,Urine 1.021 (1.001-1.035); Squamous Epithelial Cell,Urine 1 /hpf (0-4); Urobilinogen,Urine <2.0 mg/dL (<2.0); WBC,Urine 1 /hpf (0-5)
[2018-07-31 09:21] LABS: INR 0.9 (<1.2); Partial Thromboplastin Time 26.7 sec (22.0-30.0); Prothrombin Time 9.9 sec (9.0-12.0)
== END | disposition home or self-care (01) ==
LOC: LABPAT 08:03
PROVIDERS: ATTEND Orthopaedic Surgery Orthopaedic Surgery of the Spine
DX: Z01.818 Encounter for other preprocedural examination (principal); Z01.812 Encounter for preprocedural laboratory examination; M51.17 Intervertebral disc disorders with radiculopathy, lumbosacral region
CPT/HCPCS: 71046; 81001; 85610; 85730; 86850; 86900; 86901; 87070; 93005

== ENCOUNTER 2018-08-11 10:50 | Day surgery (SDC) | payer MEDICAID ==
[~2018-08-11 10:50] MED LIST: DEXAMETHASONE SOD PHOSPHATE 10 MG/ML 1 ML VIAL IV ONE; LACTATED RINGERS 1,000 ML IV SCH; LIDOCAINE 1% 20 ML VIAL (10MG/ML) FOR IV START INTRADERMA PRN; MIDAZOLAM (PF) 2 MG/2 ML VIAL IV PRN; SODIUM CHLORIDE 0.9% IRRIGATIO 1,000 ML IRRIGATION ONE; ceFAZolin IN SWFI 2 GM/20 ML SYRINGE IVP ONE; fentaNYL (PF) 50 MCG/ML 2 ML AMP IV PRN
[2018-08-11] MEDS ORDERED: ONDANSETRON 4 MG/2 ML VIAL IVP ONE (12:03)
[2018-08-11] MEDS ORDERED: PROPOFOL 10 MG/ML 20 ML VIAL IV ONE (13:47)
[2018-08-11] MEDS ORDERED: NEOSTIGMINE 1 MG/ML 10 ML VIAL ONE (13:47)
[2018-08-11] MEDS ORDERED: ROCURONIUM BROMIDE 10 MG/ML 10 ML VIAL IV ONE (13:47)
[2018-08-11] MEDS ORDERED: GLYCOPYRROLATE 0.2 MG/ML 2 ML VIAL ONE (13:47)
[2018-08-11] MEDS ORDERED: SUCCINYLCHOLINE CHLORIDE 100 MG/5 ML SYR IV ONE (13:47)
[2018-08-11] MEDS ORDERED: fentaNYL (PF) 50 MCG/ML 2 ML AMP ONE (13:47)
[2018-08-11] MEDS ORDERED: MIDAZOLAM 2 MG/2 ML VIAL ONE (13:47)
[2018-08-11] MEDS ORDERED: LIDOCAINE 1% INJ 10MG/ML (20 ML MDV) ONE (13:47)
[2018-08-11] MEDS ORDERED: GELATIN SPONGE,ABSORB (LARGE) 1 EACH SPONGE TOPICAL ONE (14:15)
[2018-08-11] MEDS ORDERED: THROMBIN (BOVINE) 5,000 UNIT VIAL TOPICAL ONE (14:15)
[2018-08-11] MEDS ORDERED: methylPREDNISolone ACETATE 40 MG/ML 1 ML VIAL MISCELLANE ONE (14:15)
[2018-08-11] MEDS ORDERED: LIDOCAINE 0.5%-EPI 1:200,000 50 ML VIAL SQ ONE (14:15)
[2018-08-11] MEDS ORDERED: BACITRACIN 50,000 UNIT, POLYMYXIN B 500,000 UNIT in SODIUM CHLORIDE 0.9% IRRIGATIO 1,00... IRRIGATION ONE (14:24)
--- NOTE | 2018-08-11 14:40 | XR ---
EXAMINATION TYPE: XR lumbar spine 1V DATE OF EXAM: 08/11/2018 COMPARISON: NONE HISTORY: Intraoperative image TECHNIQUE: Single view submitted FINDINGS: Resolution is markedly limited. There appears to be a surgical instrument overlying the pos terior region of the lower lumbar spine or lumbosacral junction. Resolution is markedly limited. IMPRESSION: Intraoperative localization
--- NOTE | 2018-08-11 14:41 | FL ---
EXAMINATION TYPE: FL guidance operating room DATE OF EXAM: 08/11/2018 HISTORY: Flouroscopy time 3 seconds of fluoroscopy provided. IMPRESSION: 1. Fluoroscopy time.
[2018-08-11] MEDS ORDERED: LACTATED RINGERS 1,000 ML IV ONE (14:44)
--- NOTE | 2018-08-11 15:02 | P.OP ---
Date of Procedure: 08/11/18 Preoperative Diagnosis: Herniated nucleus pulposis L5-S1 Left lower extremity radiculopathy Left lower extremity weakness Postoperative Diagnosis: Same Anesthesia: GETA Pathology: none sent Condition: stable Disposition: PACU Description of Procedure: BRIEF OPERATIVE NOTE Preoperative Diagnosis:Herniated nucleus pulposis L5-S1 Left lower extremity radiculopathy Left lower extremity weakness Postoperative Diagnosis: Same Procedure: Laminectomy and decompression L5-S1 Discectomy for decompression L5-S1 Surgeon: Dr. Hackett Director Transportation: Rip Melvin is present throughout the entire the case persistence during positioning, dissection, exposure, visualization, and all crucial elements of the case as well as closure. Anesthesia: General anesthesia Estimated blood loss: Approximately 20 mL Complications: None apparent Components implanted: None Disposition: To recovery room in good stable condition. OPERATIVE INDICATIONS The patient has been having issues in their lower back and lower extremities. She is having severe left lower extremity radicular symptoms with numbness tingling and some weakness at her left leg. She was found have a large extruded disc herniation at L5-S1 on the left which correlated well with her low back and left lower extremity symptoms. The patient has been through conservative treatment. She is not having any prolonged benefit despite aggressive conservative treatment. We discussed various treatment options including surgery, and the patient wishes to proceed with surgery We discussed the risk, patient's alternatives and benefits of surgery including but not limited to, risk of bleeding risk of infection, risk of need for further surgery , risk of decreased, loss of motion, loss of function, nerve damage, paralysis, heart attack, blindness and . OPERATIVE SUMMARY After discussing all the risks, patient alternatives and benefits at length, the patient elected to proceed with surgical intervention, signed informed consent, and presented for their procedure. The patient was seen and examined in the preoperative holding area and the surgical site was marked. The patient was given antibiotics and brought to the operating room. The patient was sedated and intubated by anesthesia in standard fashion. The patient was positioned on to the operating room table in a prone position on the appropriate frame which was well-padded and well molded. We were careful to pad any bony prominences and pressure points. We were careful to maintain the patient's cervical spine and good neutral alignment and position throughout. The patient was prepped and draped in a normal standard fashion. An appropriate timeout and keystone protocol performed. We were able to proceed with the surgery. Fluoroscopy was utilized to establish the appropriate level. The local wound area was infiltrated with local anesthetic. An incision was made at the midline longitudinally over the appropriate levels at L5-S1 approximately 2 cm in length. Dissection was taken down subcutaneously to the level of the fascia which was split midline. Dissection was taken over the lamina. Intraoperative fluoroscopy was taken which showed a marker at the appropriate level at L5-S1. With the appropriate level positively confirmed, we were able to proceed with laminectomy. The wound was copiously irrigated and suctioned dry as had been done periodically throughout the case. I performed a laminectomy at L5-S1 with a combination of curettes and a high-speed bur and Kerrison rongeurs. A small medial facetectomy was performed again further access. A partial foraminotomy was also performed. Portions of the ligamentum flavum were taken down to expose the dura and traversing nerve root. I was able to mobilize the traversing nerve root and gain access to the disc space. Note was made of obvious compression from the disc. There is large compression at the traversing nerve root due to an extruded fragment. Protecting the soft tissue structures, a small annulotomy was established. I was able to perform discectomy and remove any extruded disc fragments and any loose fragments from within the disc itself. There is some disc desiccation noted. I tried to preserve the disc annulus that appeared stable. There were no further extruded fragments noted. There is no evidence of dural tear or leak. Good hemostasis maintained. The wound was copiously irrigated and suctioned dry. Good decompression and discectomy was noted. We were able to proceed with closure. The fascia was closed for a watertight closure. The subcuticular tissue was closed with absorbable suture. The wound was cleaned and dried and dressed with the appropriate dressing. The drapes were broken down. The patient was gently rolled back onto their hospital bed being careful to maintain their cervical spine and good neutral alignment and position. They were woken up by anesthesia, extubated, and brought to the recovery room in good stable condition. The patient will be admitted to the hospital for observation and for appropriate postoperative care, medical management and monitoring. We will continue to follow them closely about the postoperative course.
[2018-08-11] MEDS ORDERED: HYDROcodone/APAP 5-325MG 1 EACH TAB PO PRN (15:05)
[2018-08-11] MEDS ORDERED: KETOROLAC 30 MG/ML 1 ML VIAL IVP PRN (15:05)
[2018-08-11] MEDS ORDERED: HYDROmorphone 0.5 MG/0.5 ML SYRINGE IVP PRN (15:05)
[2018-08-11] MEDS ORDERED: IBUPROFEN 600 MG TAB PO PRN (15:05)
[2018-08-11] MEDS ORDERED: BENZOCAINE/MENTHOL LOZENG 1 EACH LOZENGE MUCOUS MEM PRN (15:05)
[2018-08-11] MEDS ORDERED: traMADol 50 MG TAB PO PRN (15:06)
[2018-08-11] MEDS ORDERED: ALBUTEROL NEBULIZED 2.5 MG/3 ML INHALATION PRN (15:07)
[2018-08-11] MEDS: IBUPROFEN 800 MG TAB PO PRN (16:30)
[2018-08-11] MEDS: SODIUM CHLORIDE 0.9% 1,000 ML IV SCH (16:31)
[2018-08-11 18:24] VITALS: BMI 31.1
[2018-08-11] MEDS: DOXYCYCLINE 100 MG CAP PO SCH (20:53)
[2018-08-11] MEDS: ceFAZolin IN SWFI 2 GM/20 ML SYRINGE IVP SCH (20:53)
[2018-08-12] MEDS: IBUPROFEN 800 MG TAB PO PRN (01:56)
[2018-08-12] MEDS: ceFAZolin IN SWFI 2 GM/20 ML SYRINGE IVP SCH (05:19)
[2018-08-12] MEDS: SODIUM CHLORIDE 0.9% 1,000 ML IV SCH (05:39)
[2018-08-12] MEDS ORDERED: LEVOTHYROXINE 88 MCG TAB PO SCH (06:30)
[2018-08-12] MEDS ORDERED: PANTOPRAZOLE 40 MG TABLET PO SCH (07:30)
[2018-08-12 07:58] VITALS: BP 139/89; PULSE 91; RESP 16; TEMP 98.1
[2018-08-12] MEDS: DOXYCYCLINE 100 MG CAP PO SCH (07:59)
--- NOTE | 2018-08-12 08:12 | P.DS ---
Providers Date of admission: 08/11/18 Attending physician: Rene Hackett Primary care physician: Maycol Rothman [facility] Course: The patient presented on the day of admission as per their operative note. She had severe left lower extremity radiculopathy with some weakness due to a disc herniation L5-S1. Since her surgery she feels she is doing much better. She says she woke up and had instant pain relief in her left lower extremity. Physical Exam The incision site is clean dry and intact. There is no erythema no drainage. There is no purulence no evidence of infection. His no active drainage. At her back Abdomen soft and nontender. Chest has good excursion with deep inspiration and expiration. The patient has active and passive range of motion intact at the upper and lower extremities. There is no acute change in neurologic status. She has sustained dorsal flexion plantar flexion and EHL intact currently. Hospital Course Postoperative day #1 status post laminectomy decompression with discectomy L5- S1 for her disc herniation with left lower extremity radiculopathy The patient has been making good progress postoperatively. She feels she is making excellent improvement in her left lower extremity symptoms and is very happy with her results thus far. They have completed the prophylactic antibiotics without any signs or symptoms of infection. The patient has been able to advance their diet, and is tolerating diet adequately. The pain was initially controlled with IV medications and is now controlled appropriately with oral medications. The patient has been able to increase their mobilization. The patient has progressed appropriately. I think they are in good stable condition for discharge today. They will be sent home with appropriate prescriptions. I answered their questions to the best of my ability in a language that they can understand and they are agreeable with the plan. They will follow up as directed. Plan - Discharge Summary Discharge Rx Participant: Yes New Discharge Prescriptions: New traMADol HCL [Ultram] 50 mg PO Q6HR PRN 3 Days #12 tab PRN Reason: Pain No Action Albuterol Inhaler [Ventolin Hfa Inhaler] 1 puff INHALATION RT-QID PRN PRN Reason: Shortness Of Breath Omeprazole 40 mg PO AC-BRKFST Doxycycline [Vibramycin] 100 mg PO BID Vitamin D (Unknown Dose) 1 tab PO DAILY Vitamin B (Unknown Dose) 1 tab PO DAILY Levothyroxine Sodium [Synthroid] 175 mcg PO DAILY Ibuprofen [Motrin Ib] 800 mg PO DIRECTED PRN PRN Reason: Pain Testosterone Injections 1 dose IM QMONTH Discharge Medication List Albuterol Inhaler [Ventolin Hfa Inhaler] 1 puff INHALATION RT-QID PRN 01/02/17 [ History] Omeprazole 40 mg PO AC-BRKFST 01/02/17 [History] Doxycycline [Vibramycin] 100 mg PO BID 08/05/18 [History] Ibuprofen [Motrin Ib] 800 mg PO DIRECTED PRN 08/05/18 [History] Levothyroxine Sodium [Synthroid] 175 mcg PO DAILY 08/05/18 [History] Testosterone Injections 1 dose IM QMONTH 08/05/18 [History] Vitamin B (Unknown Dose) 1 tab PO DAILY 08/05/18 [History] Vitamin D (Unknown Dose) 1 tab PO DAILY 08/05/18 [History] traMADol HCL [Ultram] 50 mg PO Q6HR PRN 3 Days #12 tab 08/11/18 [Rx] Follow up Appointment(s)/Referral(s): Rene Hackett DO [Doctor of Osteopathic Medicine] - 2 Weeks (FOLLOW UP W DR HACKETT ON August AT 10:30) Activity/Diet/Wound Care/Special Instructions: May ambulate as tolerated. Keep site clean May shower with waterproof Tegaderm intact. Do not soak in a tub. On Thursday, the patient may remove dressing and then may shower with area uncovered. Avoid heavy or rigorous activity No repetitive bending twisting or lifting Discharge Disposition: HOME SELF-CARE
[2018-08-12] MEDS ORDERED: VITAMIN B PO SCH (09:00)
[2018-08-12] MEDS ORDERED: SENNOSIDES-DOCUSATE SODIUM 1 EACH TAB PO SCH (09:00)
[2018-08-12] MEDS ORDERED: CHOLECALCIFEROL 1,000 UNIT TAB PO SCH (12:00)
== END 2018-08-12 10:54 | disposition home or self-care (01) ==
LOC: OR 10:50 → 4SSUR 14:53 → OR 08-12 10:54
PROVIDERS: ATTEND Orthopaedic Surgery Orthopaedic Surgery of the Spine
DX: M51.16 Intervertebral disc disorders with radiculopathy, lumbar region (principal); E78.5 Hyperlipidemia, unspecified; Z79.890 Hormone replacement therapy; Z79.899 Other long term (current) drug therapy; Z72.0 Tobacco use; R63.4 Abnormal weight loss; M43.16 Spondylolisthesis, lumbar region; Z88.8 Allergy status to other drugs, medicaments and biological substances
CPT/HCPCS: 81025; 72020; 63047; J2250; J1030; J2710; J2405; J2001; J3010; J0330; J2704; J0690 ×2; 86850; 86900; 86901

== ENCOUNTER → 2019-01-18 | Outpatient (CLI) | payer MEDICAID ==
[2019-01-18 08:21] LABS: Basophils # (A) 0.1 k/uL (0-0.2); Basophils % (A) 1 %; Eosinophils # (A) 0.9 k/uL (0-0.7); Eosinophils % (A) 8 %; HCT 47.3 % (34.0-46.0); HGB 15.3 gm/dL (11.4-16.0); Lymphocytes # (A) 2.2 k/uL (1.0-4.8); Lymphocytes % (A) 20 %; MCH 32.6 pg (25.0-35.0); MCHC 32.4 g/dL (31.0-37.0); MCV 100.8 fL (80.0-100.0); Macrocytosis Slight; Mean Platelet Volume 7.9; Monocytes # (A) 0.8 k/uL (0-1.0); Monocytes % (A) 7 %; Neutrophils # (A) 6.5 k/uL (1.3-7.7); Neutrophils % (A) 62 %; Platelet Count 399 k/uL (150-450); RBC 4.69 m/uL (3.80-5.40); RDW 14.1 % (11.5-15.5); WBC 10.6 k/uL (3.8-10.6)
[2019-01-18 11:18] LABS: Erythrocyte Sedimentation Rate 18 mm/hr (0-20)
[2019-01-18 11:21] LABS: Albumin 4.3 g/dL (3.80-4.90); Albumin/Globulin Ratio 1.79 (1.60-3.17); Anion Gap 8.2 mmol/L (4.00-12.00); BUN/Creat Ratio 16.25 Ratio (12.00-20.00); Calcium 9.2 mg/dL (8.7-10.3); Carbon Dioxide 25.8 mmol/L (21.6-31.8); Globulin 2.4 g/dL (1.6-3.3); Non-African American GFR(CKD) 87.2 (60.0-200.0); Total Bilirubin 0.3 mg/dL (0.3-1.2); Total Protein 6.7 g/dL (6.2-8.2)
[2019-01-18 11:30] LABS: T4, Free (Free Thyroxine) 1.3 ng/dL (0.80-1.80)
== END | disposition home or self-care (01) ==
LOC: LABWHC1 06:46
PROVIDERS: ATTEND Family Medicine
DX: K59.00 Constipation, unspecified (principal); R10.9 Unspecified abdominal pain
CPT/HCPCS: 36415; 80053; 84439; 84443; 85025; 85652

== ENCOUNTER → 2019-02-16 | Outpatient (CLI) | payer MEDICAID ==
--- NOTE | 2019-02-17 14:22 | MM ---
Reason for exam: screening (asymptomatic). Last mammogram was performed 1 year and 7 months ago. History: Patient has history of other cancer at age 43. Took hormonal contraceptives for 7 years beginning at age 21. Taking other hormone. Physical Findings: A clinical breast exam by your physician is recommended on an annual basis and results should be correlated with mammographic findings. MG 3D Screening Mammo W/Cad Bilateral CC and MLO view(s) were taken. Prior study comparison: July 14, 2017, bilateral MG 3d screening mammo w/cad. September 24, 2015, bilateral MG work up mamm w CAD BILAT. The breast tissue is heterogeneously dense. This may lower the sensitivity of mammography. Finding: There is a 13 mm microlobulated oval mass in the inner quadrant of the left breast, questionable skin lesion. Asymmetric breast tissue left upper outer quadrant. ASSESSMENT: Incomplete: need additional imaging evaluation, BI-RAD 0 RECOMMENDATION: Special view mammogram of the left breast. If lesion persists on supplemental views, image directed ultrasound is recommended. [facility] will attempt to contact patient to return for supplemental views and ultrasound if indicated.
== END | disposition home or self-care (01) ==
LOC: RADMAMWWP 06:56
PROVIDERS: ATTEND Obstetrics & Gynecology
DX: Z12.31 Encounter for screening mammogram for malignant neoplasm of breast (principal)
CPT/HCPCS: 77063; 77067

== ENCOUNTER → 2019-03-03 | Outpatient (CLI) | payer MEDICAID ==
--- NOTE | 2019-03-04 08:26 | MM ---
Reason for exam: additional evaluation requested from abnormal screening. Last mammogram was performed less than 1 month ago. History: Patient has history of other cancer at age 43. Took hormonal contraceptives for 7 years beginning at age 21. Taking other hormone. Physical Findings: Nurse Summary: 1 x 1cm nodule in the left breast at 9:30 (nurse ts). MG 3D Work Up W/Cad LT CC and MLO view(s) were taken of the left breast. Prior study comparison: February 16, 2019, bilateral MG 3d screening mammo w/cad. July 14, 2017, bilateral MG 3d screening mammo w/cad. The breast tissue is heterogeneously dense. This may lower the sensitivity of mammography. Finding: There is a 15 mm circumscribed oval mass in the lower inner quadrant, posterior position of the left breast. These results were verbally communicated with the patient and result sheet given to the patient on 03/03/19. ASSESSMENT: Incomplete: need additional imaging evaluation, BI-RAD 0 RECOMMENDATION: Ultrasound of the left breast.
--- NOTE | 2019-03-04 08:28 | USB ---
Reason for exam: additional evaluation requested from abnormal screening. History: Patient has history of other cancer at age 43. Took hormonal contraceptives for 7 years beginning at age 21. Taking other hormone. US Breast Workup Limited LT Right limited breast ultrasound including focal area of concern, retroareolar and axilla demonstrates a 0.4 x 0.3 x 0.4cm solid lesion at 9 o'clock. These results were verbally communicated with the patient and result sheet given to the patient on 03/03/19. ASSESSMENT: Suspicious, BI-RAD 4 RECOMMENDATION: Ultrasound core biopsy of the left breast. Called Dr. Gracia with mammographic findings and has scheduled an appointment for the patient for 03/04/19 at 9:[address] Soto. Biopsy scheduled for 03/25/19 at 11:30. PRELIMINARY REPORT CALLED AND FAXED TO DR. SOTO ON 03/04/19.
== END | disposition home or self-care (01) ==
LOC: RADMAMWWP 14:48
PROVIDERS: ATTEND Obstetrics & Gynecology
DX: R92.8 Other abnormal and inconclusive findings on diagnostic imaging of breast (principal)
CPT/HCPCS: 77061; 77065

== ENCOUNTER → 2019-03-04 | Outpatient (CLI) | payer MEDICAID ==
[2019-03-04 09:07] VITALS: BP 157/108; PULSE 104; RESP 18; TEMP 97.9; BMI 31.0
--- NOTE | 2019-03-04 09:39 | P.GSHP ---
History of Present Illness H&P Date: 03/04/19 Chief Complaint: Abnormal radiographic studies Patient is a 49-year-old white female who underwent a routine screening mammogram and [id number]. This was felt to be incomplete as there was a 13 mm microlobulated mass in the inner quadrant of the left breast. Asymmetric breast tissue in the left upper outer quadrant was also noted. It was recommended that the patient undergo special view mammogram of the left breast. On special view mammogram of the left breast performed on 03/03/2019 the patient was noted to have a 15 mm circumscribed oval mass in the lower inner quadrant posterior position of the left breast. She then underwent an ultrasound. Ultrasound revealed a 0.4 x 0.4 solid lesion at 9:00. Ultrasound core biopsy of the left breast was recommended. The nurse noted a 1 x 1 cm nodule in the left breast at 9:30. The patient herself has not felt anything of concern in her breast. She is not complaining of any breast pain or discomfort. She is not complaining of any abnormal nipple discharge. She is not complaining of any skin changes in her breasts. She has no recent history of trauma or infection to the breast. The patient drinks one cup of coffee per day and 1 pop per day. She smoked 1 pack every three days. She is not exposed to secondhand smoke. She does not eat chocolate. Family History: father: skin cancer patient: basal cell maternal grandfather: stomach cancer maternal uncle: lung and bone cancer paternal uncle: two with cancer not know the type Hormonal history: Menarche:10 [place] 1, breast fed: no, first born at 29 periods: ablation 8 years ago, occasional spotting BCP: 4 years hormones: Testosterone injections Past Surgical History: 1. 4 sinus surgeries 2. cholycystetomy 3. tubal-ligation 4. uterine ablation 5. colonoscopy times two 6. back surgery Medical History: 1. diverticular disease 2. hypothyroid 3. hiatal hernia 4. asthma Social History: smoke: 1 pack/2 days alcohol: daily drugs: none - Constitutional Comment: hot flashes Constitutional: Reports sweats - EENT Eyes: denies blurred vision, denies pain Ears: deny: decreased hearing (meniers), tinnitus Ears, nose, mouth and throat: Reports headache, Reports sinus pressure, Denies sore throat - Breasts Breasts: bilateral: as per HPI - Cardiovascular Cardiovascular: Denies chest pain, Denies shortness of breath - Respiratory Comment: asthma - Gastrointestinal Comment: IBS, diverticuli - Genitourinary (Female) Comment: blood in urine saw urologist Genitourinary: Denies dysuria, Denies hematuria - Menstruation Menstruation: Reports cycle variable - Musculoskeletal Comment: arthritis L5-S1 disc removal Musculoskeletal: Reports myalgias - Integumentary Comment: Paresthetic nostalgia; unexplained itch in the center of the back Integumentary: Reports pruritus, Denies rash - Neurological Neurological: Denies numbness, Denies weakness - Psychiatric Psychiatric: Denies anxiety, Denies depression - Endocrine Comment: hypothyroid - Hematologic/Lymphatic Comment: none - Allergic/Immunologic Allergic/Immunologic: Reports seasonal allergies Past Medical History Past Medical History: Asthma, Cancer, GERD/Reflux, Hypertension, Thyroid Disorder Additional Past Medical History / Comment(s): hiatal hernia, hx. skin cancer, I BS, diverticulitis, allergy induced asthma History of Any Multi-Drug Resistant Organisms: None Reported Past Surgical History: Cholecystectomy, Tubal Ligation, Uterine Ablation Additional Past Surgical History / Comment(s): sinus surgery Past Anesthesia/Blood Transfusion Reactions: No Reported Reaction Past Psychological History: ADD/ADHD Smoking Status: Current some day smoker Past Alcohol Use History: None Reported Past Drug Use History: None Reported - Past Family History Mother Family Medical History: No Reported History Additional Family Medical History / Comment(s): Triple bypass Father Family Medical History: Cancer Additional Family Medical History / Comment(s): Pacer Medications and Allergies Home Medications Medication Instructions Recorded Confirmed Type Albuterol Inhaler [Ventolin Hfa 1 puff INHALATION RT-QID PRN 01/02/17 03/04/19 History Inhaler] Omeprazole 40 mg PO AC-BRKFST 01/02/17 03/04/19 History Levothyroxine Sodium [Synthroid] 175 mcg PO DAILY 08/05/18 03/04/19 History Fexofenadine HCl [Melba Allergy] 180 mg PO DAILY 03/04/19 03/04/19 History Allergies Allergy/AdvReac Type Severity Reaction Status Date / Time niacin AdvReac Severe Red skin Verified 03/04/19 09:07 [From Niaspan (ER visit) Extended-Release] pheniramine AdvReac Increased Verified 03/04/19 09:07 [From Theraflu Sinus and Blood Cold] Pressure phenylephrine AdvReac Increased Verified 03/04/19 09:07 [From Theraflu Sinus and Blood Cold] Pressure Surgical - Exam Vital Signs Temp Pulse Resp BP 97.9 F 104 H 18 157/108 03/04/19 09:04 03/04/19 09:04 03/04/19 09:04 03/04/19 09:04 BMI 31 - General well developed, well nourished, no distress - Eyes normal ocular movement - ENT no hearing loss, no congestion - Neck no masses, trachea midline - Respiratory normal respiratory effort, clear to auscultation - Cardiovascular Rhythm: regular Heart Sounds: normal: S1, S2 - Abdomen Abdomen: soft, non tender, no guarding, no rigid, no rebound - Integumentary normal turgor - Neurologic no disoriented, no combative - Musculoskeletal normal gait, normal posture - Psychiatric oriented to time, oriented to person, oriented to place, speech is normal, memory intact Breast Exam: Weight breasts: Slightly smaller than left breast, multiple positional exam fibrocystic changes no dominant masses or nodules of concern Right axilla: No adenopathy of concern Left breast: Larger than right breast, multiple positional exam fibrocystic changes no dominant masses or nodules of concern, there is a small area of excoriation of the breast at the 9:30 position no definite mass or nodule is noted. Left axilla: No adenopathy of concern Results Review of mammogram and ultrasound performed Assessment and Plan Assessment: Impression: 1. Mammogram and ultrasound abnormality left breast 2. Skin excoriation 9:30 position left breast appears to be superficial noninfected area 3. Arthritis 4. Myalgias 5. Status post back surgery 6. Asthma 7. Nicotine dependence 8. Family history of cancer Plan: 1. Ultrasound-guided core biopsy left breast, appointment after the ultrasound core biopsy, patient will be scheduled for a repeat left breast ultrasound/mammogram in 6 months depending on results of biopsy and follow-up visit at that time 2. Close surveillance of the skin change in the left breast which I believe will heal without incident 3. Medical management of medical conditions We have discussed decreased caffeine intake as this may exacerbate fibrocystic disease, the patient is going to consider this. Cc: Dr. Nash
== END ==
LOC: WWCWWP 08:54
PROVIDERS: ATTEND Surgery
DX: Z53.9 Procedure and treatment not carried out, unspecified reason (principal)

== ENCOUNTER → 2019-03-25 | Day surgery (SDC) | payer MEDICAID ==
[2019-03-25 11:02] VITALS: RESP 16; BMI 30.7
--- NOTE | 2019-03-25 12:55 | USB ---
EXAMINATION TYPE: US biopsy breast add'l VAD LT, US biopsy breast VAD LT, MG diagnostic mammo LT wo CAD DATE OF EXAM: 03/25/2019 CLINICAL HISTORY: R92.8 abn karen. TECHNIQUE: Ultrasound guided core biopsy of left breast. COMPARISON: 02/16/2019 and 03/03/2019 mammogram and ultrasound FINDINGS: The procedure of ultrasound guided core biopsy was explained to the patient. Benefits, alternatives, and risks were discussed. An informed consent was then obtained. Preprocedural timeout was performed. Prescanning demonstrated an additional 1.5 x 0.8 cm irregular hypoechoic mass with peripheral vascular flow and some internal flow that is highly suspicious at the 8:00 position in the left breast. Recommendation for a second biopsy was discussed with the patient and the patient agreed therefore 2 site biopsy was performed. Site A (8:00 mass in the left breast): The patient was placed in supine positioning for imaging and for the procedure. The overlying skin was prepped and draped in usual sterile fashion. 10 cc of 1% lidocaine was used as anesthetic into the skin and subcutaneous tissue up to the 1.5 cm highly suspicious irregular mass in the left breast. Under ultrasound guidance, a 12-gauge vacuum assisted biopsy gun device was used to obtain 5 core samples. Following this, a ribbon-shaped biopsy marker was placed in mass. Site B (9:00 mass in the left breast): The patient was placed in supine positioning for imaging and for the procedure. The overlying skin was prepped and draped in usual sterile fashion. 10 cc of 1% lidocaine was used as anesthetic into the skin and subcutaneous tissue up to a 0.4 cm solid mass at the 9:00 position in the left breast. Under ultrasound guidance, a 12-gauge vacuum assisted biopsy gun device was used to obtain 5 core samples. Following this, a wing shaped biopsy marker was left at the site of biopsy as the mass was nearly completely excised by vacuum assisted biopsy. Postprocedure mammogram demonstrates appropriate biopsy marker placement with the site A, ribbon-shaped biopsy marker corresponding to the original mass at the patient was called back for diagnostic examination of 03/03/2019. The patient tolerated the procedure well without any immediate complication. The patient was kept in the radiology department for short stay after the procedure and then discharged home in stable condition. IMPRESSION: Successful, uncomplicated ultrasound guided core biopsy of 2 sites within the left breast, 1 highly suspicious corresponding to the mammographic mass (8:00 mass), full pathology results to follow. Pathology Results: Malignant A. LEFT BREAST, 8:00, CORE BIOPSY: Invasive ductal carcinoma, at least well to moderately differentiated. See Surgical Pathology Cancer Case Summary and Comment. B. LEFT BREAST, 9:00, CORE BIOPSY: Fibrocystic changes including fibrosis and small cysts. Negative for malignancy. Recommendation Surgical consult of the left breast. Definitive surgical/medical management of the left 8 o'clock mass. 9 o'clock, benign, concordant. MTDD
[2019-03-25 13:38] VITALS: BP 145/88; PULSE 69; TEMP 98.5
== END | disposition home or self-care (01) ==
LOC: RADUSWWP 10:28
PROVIDERS: ATTEND Surgery
DX: C50.312 Malignant neoplasm of lower-inner quadrant of left female breast (principal); Z17.0 Estrogen receptor positive status [ER+]
CPT/HCPCS: 88305; 88342; 88341; 77065; 19083; 19084; A4648; J2001

== ENCOUNTER 2019-07-10 22:37 | Emergency (ER) | payer BC ==
[2019-07-10 22:42] VITALS: TEMP 97.8
[2019-07-10] MEDS ORDERED: PANTOPRAZOLE 40 MG/10 ML VIAL IVP STA (22:47)
[2019-07-10] MEDS ORDERED: SODIUM CHLORIDE 0.9% 1,000 ML IV STA (22:47)
--- NOTE | 2019-07-10 22:47 | ED ---
GI Bleed HPI - General Chief complaint: GI Bleed Stated complaint: Bloody Stool Time Seen by Provider: 07/10/19 22:43 Source: patient, RN notes reviewed, old records reviewed Mode of arrival: ambulatory Limitations: no limitations - History of Present Illness Initial comments: This is a 49-year-old female here for evaluation. Patient is safe for evalua tion regards to multiple episodes of bloody stool. Blood mixed in with stool. Otherwise no significant abdominal pain. Patient is on radiation for recent breast cancer.Travel history or sick contacts. No nausea no vomiting. No fevers. No significant complaints no sick contacts no recent surgical history she has had colonoscopies in the past which was normal MD complaint: blood on toilet paper, blood streaked stool -: hour(s) Radiation: none Severity scale (1-10): 3 Quality: painless Consistency: constant Improves with: none Worsens with: none Context: history of GI bleed Associated Symptoms: nausea Treatments Prior to Arrival: none - Related Data Home Medications Medication Instructions Recorded Confirmed Albuterol Inhaler [Ventolin Hfa 1 puff INHALATION RT-QID PRN 01/02/17 03/25/19 Inhaler] Omeprazole 40 mg PO HS 01/02/17 03/25/19 Levothyroxine Sodium [Synthroid] 175 mcg PO DAILY 08/05/18 03/25/19 Fexofenadine HCl [Melba Allergy] 180 mg PO DAILY 03/04/19 03/25/19 Metoprolol Tartrate 25 mg PO BID 03/21/19 03/25/19 Sulfamethox-Tmp 800-160Mg [Bactrim 1 tab PO Q12HR 03/25/19 03/25/19 DS 800-160 mg] Allergies Allergy/AdvReac Type Severity Reaction Status Date / Time niacin AdvReac Severe Red skin Verified 07/10/19 22:42 [From Niaspan (ER visit) Extended-Release] pheniramine AdvReac Increased Verified 07/10/19 22:42 [From Theraflu Sinus and Blood Cold] Pressure phenylephrine AdvReac Increased Verified 07/10/19 22:42 [From Theraflu Sinus and Blood Cold] Pressure Review of Systems ROS Statement: Those systems with pertinent positive or pertinent negative responses have been documented in the HPI. ROS Other: All systems not noted in ROS Statement are negative. Past Medical History Past Medical History: Asthma, Cancer, GERD/Reflux, Hypertension, Thyroid Disorde r Additional Past Medical History / Comment(s): hiatal hernia, hx. skin cancer, IBS, diverticulitis, allergy induced asthma, breast cancer History of Any Multi-Drug Resistant Organisms: None Reported Past Surgical History: Cholecystectomy, Tubal Ligation, Uterine Ablation Additional Past Surgical History / Comment(s): sinus surgery Past Anesthesia/Blood Transfusion Reactions: No Reported Reaction Past Psychological History: ADD/ADHD Smoking Status: Former smoker Past Alcohol Use History: Occasional Past Drug Use History: None Reported - Past Family History Mother Family Medical History: No Reported History Additional Family Medical History / Comment(s): Triple bypass Father Family Medical History: Cancer Additional Family Medical History / Comment(s): Pacer General Exam Limitations: no limitations General appearance: alert, in no apparent distress Head exam: Present: atraumatic, normocephalic, normal inspection Eye exam: Present: normal appearance, PERRL, EOMI. Absent: scleral icterus, conjunctival injection, periorbital swelling ENT exam: Present: normal exam, mucous membranes moist Neck exam: Present: normal inspection. Absent: tenderness, meningismus, lymphadenopathy Respiratory exam: Present: normal lung sounds bilaterally. Absent: respiratory distress, wheezes, rales, rhonchi, stridor Cardiovascular Exam: Present: regular rate, normal rhythm, normal heart sounds. Absent: systolic murmur, diastolic murmur, rubs, gallop, clicks GI/Abdominal exam: Present: soft, normal bowel sounds. Absent: distended, tenderness, guarding, rebound, rigid Extremities exam: Present: normal inspection, full ROM, normal capillary refill. Absent: tenderness, pedal edema, joint swelling, calf tenderness Back exam: Present: normal inspection Neurological exam: Present: alert, oriented X3, CN II-XII intact Psychiatric exam: Present: normal affect, normal mood Skin exam: Present: warm, dry, intact, normal color. Absent: rash Course Vital Signs 07/10/19 22:39 Temperature 97.8 F Pulse Rate 80 Respiratory 18 Rate Blood Pressure 160/86 O2 Sat by Pulse 97 Oximetry - Reevaluation(s) Reevaluation #1: 07/10/19 23:49 Medical records reviewed Reevaluation #2: 07/10/19 23:49 No active vomiting or diarrhea or stool here in the ER, no blood here in the ER Medical Decision Making - Medical Decision Making 49 female to the ER for evaluation regards to bloody bowel movements here in the ER, patient can be discharged home to return if significant symptoms worsen. - Lab Data Result diagrams: 07/10/19 23:00 07/10/19 23:00 Lab Results 07/10/19 07/10/19 07/10/19 Range/Units 23:00 23:00 23:00 WBC 9.5 (3.8-10.6) k/uL RBC 4.21 (3.80-5.40) m/uL Hgb 14.2 (11.4-16.0) gm/dL Hct 41.3 (34.0-46.0) % MCV 98.1 (80.0-100.0) fL MCH 33.7 (25.0-35.0) pg MCHC 34.3 (31.0-37.0) g/dL RDW 12.2 (11.5-15.5) % Plt Count 382 (150-450) k/uL Neutrophils % 64 % Lymphocytes % 21 % Monocytes % 6 % Eosinophils % 6 % Basophils % 1 % Neutrophils # 6.1 (1.3-7.7) k/uL Lymphocytes # 2.0 (1.0-4.8) k/uL Monocytes # 0.5 (0-1.0) k/uL Eosinophils # 0.5 (0-0.7) k/uL Basophils # 0.1 (0-0.2) k/uL PT 9.6 (9.0-12.0) sec INR 0.9 (<1.2) APTT 24.0 (22.0-30.0) sec Sodium 139 (137-145) mmol/L Potassium 4.0 (3.5-5.1) mmol/L Chloride 106 (98-107) mmol/L Carbon Dioxide 24 (22-30) mmol/L Anion Gap 9 mmol/L BUN 11 (7-17) mg/dL Creatinine 0.59 (0.52-1.04) mg/dL Est GFR (CKD-EPI)AfAm >90 (>60 ml/min/1.73 sqM) Est GFR (CKD-EPI)NonAf >90 (>60 ml/min/1.73 sqM) Glucose 96 (74-99) mg/dL Calcium 9.4 (8.4-10.2) mg/dL Magnesium 1.7 (1.6-2.3) mg/dL Total Bilirubin 0.3 (0.2-1.3) mg/dL AST 41 H (14-36) U/L ALT 57 H (4-34) U/L Alkaline Phosphatase 108 (38-126) U/L Troponin I (0.000-0.034) ng/mL Total Protein 7.3 (6.3-8.2) g/dL Albumin 4.3 (3.5-5.0) g/dL 07/10/19 Range/Units 23:00 WBC (3.8-10.6) k/uL RBC (3.80-5.40) m/uL Hgb (11.4-16.0) gm/dL Hct (34.0-46.0) % MCV (80.0-100.0) fL MCH (25.0-35.0) pg MCHC (31.0-37.0) g/dL RDW (11.5-15.5) % Plt Count (150-450) k/uL Neutrophils % % Lymphocytes % % Monocytes % % Eosinophils % % Basophils % % Neutrophils # (1.3-7.7) k/uL Lymphocytes # (1.0-4.8) k/uL Monocytes # (0-1.0) k/uL Eosinophils # (0-0.7) k/uL Basophils # (0-0.2) k/uL PT (9.0-12.0) sec INR (<1.2) APTT (22.0-30.0) sec Sodium (137-145) mmol/L Potassium (3.5-5.1) mmol/L Chloride (98-107) mmol/L Carbon Dioxide (22-30) mmol/L Anion Gap mmol/L BUN (7-17) mg/dL Creatinine (0.52-1.04) mg/dL Est GFR (CKD-EPI)AfAm (>60 ml/min/1.73 sqM) Est GFR (CKD-EPI)NonAf (>60 ml/min/1.73 sqM) Glucose (74-99) mg/dL Calcium (8.4-10.2) mg/dL Magnesium (1.6-2.3) mg/dL Total Bilirubin (0.2-1.3) mg/dL AST (14-36) U/L ALT (4-34) U/L Alkaline Phosphatase (38-126) U/L Troponin I <0.012 (0.000-0.034) ng/mL Total Protein (6.3-8.2) g/dL Albumin (3.5-5.0) g/dL - Radiology Data Radiology results: report reviewed (Computed tomography scan of pelvis is negative for acute disease), image reviewed Disposition Clinical Impression: Radiation colitis Disposition: HOME SELF-CARE Condition: Good Instructions (If sedation given, give patient instructions): Gastrointestinal Bleeding (ED) Is patient prescribed a controlled substance at d/c from ED?: No Referrals: Maycol Nash MD [Primary Care Provider] - 1-2 days
[2019-07-10 23:10] LABS: Basophils # (A) 0.1 k/uL (0-0.2); Basophils % (A) 1 %; Eosinophils # (A) 0.5 k/uL (0-0.7); Eosinophils % (A) 6 %; HCT 41.3 % (34.0-46.0); HGB 14.2 gm/dL (11.4-16.0); Lymphocytes % (A) 21 %; MCH 33.7 pg (25.0-35.0); MCHC 34.3 g/dL (31.0-37.0); MCV 98.1 fL (80.0-100.0); Mean Platelet Volume 8.1; Monocytes # (A) 0.5 k/uL (0-1.0); Monocytes % (A) 6 %; Neutrophils # (A) 6.1 k/uL (1.3-7.7); Neutrophils % (A) 64 %; Platelet Count 382 k/uL (150-450); RBC 4.21 m/uL (3.80-5.40); RDW 12.2 % (11.5-15.5); WBC 9.5 k/uL (3.8-10.6)
[2019-07-10 23:20] LABS: ALT 57 U/L (4-34); AST 41 U/L (14-36); African American GFR (CKD) >90 (>60 ml/min/1.73 sqM); Albumin 4.3 g/dL (3.5-5.0); Alkaline Phosphatase 108 U/L (38-126); Anion Gap 9 mmol/L; Blood Urea Nitrogen 11 mg/dL (7-17); Calcium 9.4 mg/dL (8.4-10.2); Carbon Dioxide 24 mmol/L (22-30); Chloride 106 mmol/L (98-107); Glucose 96 mg/dL (74-99); Magnesium 1.7 mg/dL (1.6-2.3); Non-African American GFR(CKD) >90 (>60 ml/min/1.73 sqM); Sodium 139 mmol/L (137-145); Total Bilirubin 0.3 mg/dL (0.2-1.3); Total Protein 7.3 g/dL (6.3-8.2)
[2019-07-10 23:27] LABS: INR 0.9 (<1.2); Prothrombin Time 9.6 sec (9.0-12.0)
--- NOTE | 2019-07-10 23:44 | CT ---
EXAMINATION TYPE: CT abdomen pelvis w con DATE OF EXAM: 07/10/2019 COMPARISON: 07/31/2014 HISTORY: Patient presents with blood in stool. CT DLP: 1408.9 mGycm Automated exposure control for dose reduction was used. CONTRAST: Performed with IV Contrast, patient injected with 100mL mL of Isovue 300. Multiple axial sections were obtained from the diaphragm to the floor the pelvis with intravenous con trast. Lung bases are clear. There is no pleural effusion. Heart size is normal. There is no pericardial eff usion. There are clips from cholecystectomy. Liver spleen pancreas stomach appear normal. Bile ducts are not dilated. There is no adrenal mass. Kidneys show satisfactory contrast opacification. There is no hydronephrosi s. There is no sign of a renal calculus. Bladder distends smoothly. There is no inguinal hernia. There is no free fluid in the pelvis. Uterus is anteverted. There is no evidence of a pelvic mass. Appendix is posterior and appears normal. Lumbar vertebra have normal spacing and alignment. There is no compression fracture. Bony pelvis is intact. There is no mesenteric edema. There is no ascites or free air. There is no sign of a bowel obstructio n. IMPRESSION: Negative CT scan of the abdomen and pelvis. No adverse change compared to old exam.
[2019-07-11 00:32] VITALS: BP 126/76; PULSE 75; RESP 16
== END 2019-07-11 00:32 | disposition home or self-care (01) ==
LOC: EC 22:37
DX: K52.0 Gastroenteritis and colitis due to radiation (principal); J45.909 Unspecified asthma, uncomplicated; K21.9 Gastro-esophageal reflux disease without esophagitis; I10 Essential (primary) hypertension; E07.9 Disorder of thyroid, unspecified; Z87.891 Personal history of nicotine dependence; Z88.8 Allergy status to other drugs, medicaments and biological substances; Z79.890 Hormone replacement therapy; Z79.899 Other long term (current) drug therapy; Z85.3 Personal history of malignant neoplasm of breast; Z85.828 Personal history of other malignant neoplasm of skin; Z90.49 Acquired absence of other specified parts of digestive tract; Y84.2 Radiological procedure and radiotherapy as the cause of abnormal reaction of the patient, or of later complication, without mention of misadventure at the time of the procedure
CPT/HCPCS: 99285; 96374; 96361; 36415; 86900; 86901; 80053; 83735; 84484; 85025; 85610; 85730; 86850; 86870; 86880; 74177; C9113; Q9967

== ENCOUNTER → 2020-01-31 | Outpatient (CLI) | payer BC ==
--- NOTE | 2020-01-31 10:26 | MM ---
Reason for exam: additional evaluation requested from prior study. Last mammogram was performed 10 months ago. History: Patient has history of breast cancer at age 49 and has history of other cancer at age 43. Reductions of both breasts, April 2019. Lumpectomy of the left breast, April 2019. Radiation therapy of the left breast, April 2019. Malignant US biopsy breast VAD LT of the left breast, March 25, 2019. Malignant US biopsy breast add'l VAD LT of the left breast, March 25, 2019. Took hormonal contraceptives for 7 years beginning at age 21. Taking antineoplastic for 5 months. Taking other hormone for 8 months. Physical Findings: Nurse did not find any significant physical abnormalities on exam. MG 3D Diag Mammo W/Cad UVALDO Bilateral CC and MLO view(s) were taken. Spot compression MLO and LM view(s) were taken of the right breast. Prior study comparison: March 25, 2019, left breast MG diagnostic mammo LT wo CAD. March 03, 2019, left breast MG 3d work up w/cad LT. Finding: There is a questionable 8 mm equal density (isodense), round mass in the lower quadrant, posterior position. Post operative changes left breast. These results were verbally communicated with the patient and result sheet given to the patient on 01/31/20. ASSESSMENT: Incomplete: need additional imaging evaluation, BI-RAD 0 RECOMMENDATION: Ultrasound of the right breast.
--- NOTE | 2020-01-31 10:27 | USB ---
Reason for exam: additional evaluation requested from abnormal screening. History: Patient has history of breast cancer at age 49 and has history of other cancer at age 43. Reductions of both breasts, April 2019. Lumpectomy of the left breast, April 2019. Radiation therapy of the left breast, April 2019. Malignant US biopsy breast VAD LT of the left breast, March 25, 2019. Malignant US biopsy breast add'l VAD LT of the left breast, March 25, 2019. Took hormonal contraceptives for 7 years beginning at age 21. Taking antineoplastic for 5 months. Taking other hormone for 8 months. US Breast Limited RT Right limited breast ultrasound including focal area of concern, retroareolar and axilla demonstrates no cystic or solid lesion seen. These results were verbally communicated with the patient and result sheet given to the patient on 01/31/20. ASSESSMENT: Probably benign, BI-RAD 3 RECOMMENDATION: Follow-up diagnostic mammogram of the right breast in 6 months.
== END | disposition home or self-care (01) ==
LOC: RADMAMWWP 08:04
PROVIDERS: ATTEND Obstetrics & Gynecology
DX: R92.8 Other abnormal and inconclusive findings on diagnostic imaging of breast (principal); Z85.3 Personal history of malignant neoplasm of breast
CPT/HCPCS: 77062; 77066

== ENCOUNTER → 2020-05-11 | Outpatient (CLI) | payer BC ==
--- NOTE | 2020-05-12 08:35 | US ---
EXAMINATION TYPE: US thyroid st tissue head/neck DATE OF EXAM: 05/11/2020 COMPARISON: NONE CLINICAL HISTORY: R59.1 Generalized enlarged lymph nodes. Patient states at bilateral lower neck/clav ical region swelling that comes and goes. Hx of breast cancer. Area of concern scanned. No prominent masses or lesions seen. Right neck lymph node seen - 0.9 x 0. 6 x 0.4 cm and left neck lymph node seen - 0.8 x 0.7 x 0.5 cm. IMPRESSION: Centimeter lymph nodes identified as outlined above.
== END | disposition home or self-care (01) ==
LOC: RADUSWWP 16:03
PROVIDERS: ATTEND Family Medicine
DX: R59.1 Generalized enlarged lymph nodes (principal)
CPT/HCPCS: 76536

== ENCOUNTER → 2020-06-26 | Outpatient (CLI) | payer BC ==
--- NOTE | 2020-06-26 13:04 | US ---
EXAMINATION TYPE: US thyroid st tissue head/neck DATE OF EXAM: 06/26/2020 COMPARISON: 05/11/2020 CLINICAL HISTORY: R59.0 Localized enlarged lymph nodes. Patient states that left lower neck/shoulder junction area is larger and swells up than the right. Area of concern scanned. No prominent masses or fluid collections visualized. Left lower neck lymph node visualized =0.8 x 0.8 x 0.5 cm Contralateral images taken. IMPRESSION: 1. Small lymph node is present. No suspicious masses.
== END | disposition home or self-care (01) ==
LOC: RADUSWWP 06:55
PROVIDERS: ATTEND Family Medicine
DX: R59.0 Localized enlarged lymph nodes (principal)
CPT/HCPCS: 76536

== ENCOUNTER → 2020-08-06 | Outpatient (CLI) | payer BC ==
--- NOTE | 2020-08-06 11:39 | BD ---
EXAMINATION TYPE: Axial Bone Density DATE OF EXAM: 08/06/2020 COMPARISON: NONE CLINICAL HISTORY: 50-year-old female Z78.0 menopausal without HRT Height: 5 FT 7 IN Weight: 192 FRAX RISK QUESTIONS: Alcohol (3 or more units per day): NO Family History (Parent hip fracture): NO Glucocorticoids (More than 3mos): NO (Ex: prednisone, prednisolone, methylprednisolone, dexamethasone, and hydrocortisone). History of Fracture in Adulthood: NO Secondary Osteoporosis: 1. Type 1 Diabetes: NO 2. Hyperthyroidism: NO 3. Menopause before 45: UNSURE 4. Malnutrition: NO 5. Chronic liver disease: NO Rheumatoid Arthritis: NO Current Tobacco Use: QUIT 2019 RISK FACTORS HISTORY OF: Surgery to Spine/Hip(right/left)/Wrist (right/left): SPINE SURG APPROX 3 YEARS AGO Family History of Osteoporosis: UNSURE Active: YES Diet low in dairy products/other sources of calcium: NO Postmenopausal woman: ABLATION APPROX 8 YEARS AGO SYMPTOMS AROUND AGE 43 Take estrogen and/or progesterone medications: NONE Lost more than 2 inches in height since high school: NO MEDICATIONS: Thyroid Medications: YES Which medication: LEVOTHYROXINE How Lon YEARS Additional Medications: TAMOXIFEN METOPROLOL, LEVOTHYROXINE, SAXENDA Additional History: BREAST CANCER 2019 RADIATION EXAM MEASUREMENTS: Bone mineral density about the R hip (g/cm2): 1.210 Bone mineral density about the L hip (g/cm2): 1.229 T Score values are as follows: -----R Neck: 1.2 -----L Neck: 1.4 -----R Total: 1.7 -----L Total: 2.0 BASELINE Bone mineral density about the L Wrist (g/cm2): 0.798 T Score values are as follows: -----Dist. R+U: 1.4 -----Prox. R+U: 1.7 -----Radius total: 2.0 BASELINE IMPRESSION: Normal (Values between +1 and -1 indicate normal bone mass). Consider repeating this study in 5 year s or sooner if there is some new clinical indication. NOTE: T-SCORE=SD OF THE YOUNG ADULT MEAN.
== END | disposition home or self-care (01) ==
LOC: RADBDWWP 07:14
PROVIDERS: ATTEND Obstetrics & Gynecology
DX: Z78.0 Asymptomatic menopausal state (principal)
CPT/HCPCS: 77080

== ENCOUNTER → 2020-09-05 | Outpatient (CLI) | payer BC ==
--- NOTE | 2020-09-05 08:42 | MM ---
Reason for exam: follow-up at short interval from prior study. Last mammogram was performed 7 months ago. History: Patient has history of breast cancer at age 49 and has history of other cancer at age 43. Reductions of both breasts, April 2019. Lumpectomy of the left breast, April 2019. Radiation therapy of the left breast, April 2019. Malignant US biopsy breast VAD LT of the left breast, March 25, 2019. Malignant US biopsy breast add'l VAD LT of the left breast, March 25, 2019. Took hormonal contraceptives for 7 years beginning at age 21. Taking antineoplastic for 1 year 5 months. Physical Findings: Nurse did not find any significant physical abnormalities on exam. MG 3D Diag Mammo W/Cad RT CC, MLO, and XCCL view(s) were taken of the right breast. Prior study comparison: January 31, 2020, bilateral MG 3d diag mammo w/cad UVALDO. March 25, 2019, left breast MG diagnostic mammo LT wo CAD. The breast tissue is heterogeneously dense. This may lower the sensitivity of mammography. Focal asymmetry disperses on compression. These results were verbally communicated with the patient and result sheet given to the patient on 09/05/20. ASSESSMENT: Probably benign, BI-RAD 3 RECOMMENDATION: Follow-up diagnostic mammogram of both breasts in 6 months.
== END ==
LOC: RADMAMWWP 07:31
PROVIDERS: ATTEND Obstetrics & Gynecology
DX: Z85.3 Personal history of malignant neoplasm of breast (principal)
CPT/HCPCS: 77061; 77065

== ENCOUNTER → 2021-01-15 | Outpatient (CLI) | payer BC ==
--- NOTE | 2021-01-18 13:29 | MM ---
Reason for exam: follow-up at short interval from prior study. Last mammogram was performed 4 months ago. History: Patient has history of breast cancer at age 49 and has history of other cancer at age 43. Reductions of both breasts, April 2019. Lumpectomy of the left breast, April 2019. Radiation therapy of the left breast, April 2019. Malignant US biopsy breast VAD LT of the left breast, March 25, 2019. Malignant US biopsy breast add'l VAD LT of the left breast, March 25, 2019. Took hormonal contraceptives for 7 years beginning at age 21. Taking antineoplastic for 2 years beginning at age 49. Physical Findings: Nurse did not find any significant physical abnormalities on exam. MG 3D Diag Mammo W/Cad UVALDO Bilateral CC and MLO view(s) were taken. Prior study comparison: September 05, 2020, right breast MG 3d diag mammo w/cad RT. January 31, 2020, bilateral MG 3d diag mammo w/cad UVALDO. The breast tissue is heterogeneously dense. This may lower the sensitivity of mammography. Rim calcified oil cysts left breast. Reduction mammoplasty changes. No significant new findings when compared with previous films. These results were verbally communicated with the patient and result sheet given to the patient on 01/15/21. ASSESSMENT: Benign, BI-RAD 2 RECOMMENDATION: Follow-up diagnostic mammogram of both breasts in 1 year.
== END | disposition home or self-care (01) ==
LOC: RADMAMWWP 09:32
PROVIDERS: ATTEND Internal Medicine Hematology & Oncology
DX: Z08 Encounter for follow-up examination after completed treatment for malignant neoplasm (principal); Z85.3 Personal history of malignant neoplasm of breast
CPT/HCPCS: 77062; 77066

== ENCOUNTER 2021-03-30 09:43 | Emergency (ER) | payer BC ==
[2021-03-30 09:50] VITALS: RESP 18; TEMP 98.7
[2021-03-30] MEDS ORDERED: SODIUM CHLORIDE 0.9% 1,000 ML IV STA (10:35)
[2021-03-30] MEDS ORDERED: ONDANSETRON 4 MG/2 ML VIAL IVP STA (10:35)
[2021-03-30] MEDS ORDERED: FAMOTIDINE 20 MG/2 ML VIAL IV STA (10:36)
--- NOTE | 2021-03-30 10:38 | ED ---
General Adult HPI - General Chief complaint: Abdominal Pain Stated complaint: Sent by Dr/Nausea/Bowel Trouble Time Seen by Provider: 03/30/21 10:20 Source: patient, RN notes reviewed Mode of arrival: ambulatory Limitations: no limitations - History of Present Illness Initial comments: Patient is a pleasant 51-year-old female presenting to emergency Department with complaints of abdominal bloating and nausea. Onset of symptoms was 5 or 6 days ago. Patient did have one to 2 days of vomiting that has resolved. Patient continues to feel nauseous. Patient feels bloated and fullness in her abdomen. Patient has chronic constipation that may be somewhat worse than normal. Patient has felt chilled however no fevers when she checked her temperature. - Related Data Home Medications Medication Instructions Recorded Confirmed Omeprazole 40 mg PO HS 01/02/17 03/30/21 Albuterol Inhaler [Ventolin Hfa 2 puff INHALATION RT-QID PRN 03/30/21 03/30/21 Inhaler] Docusate [Colace] 200 mg PO DAILY 03/30/21 03/30/21 Famotidine 40 mg PO DAILY 03/30/21 03/30/21 Levothyroxine Sodium 150 mcg PO DAILY 03/30/21 03/30/21 Liraglutide [Saxenda] 3 mg INJ DAILY 03/30/21 03/30/21 Losartan Potassium [Cozaar] 100 mg PO DAILY 03/30/21 03/30/21 Metoprolol Succinate [Toprol XL] 25 mg PO DAILY 03/30/21 03/30/21 Tamoxifen Citrate 20 mg PO DAILY 03/30/21 03/30/21 Previous Rx's Medication Instructions Recorded Metoclopramide HCl [Reglan] 10 mg PO Q6HR PRN #15 tablet 03/30/21 Allergies Allergy/AdvReac Type Severity Reaction Status Date / Time niacin AdvReac Severe Red skin Verified 03/30/21 13:02 [From Niaspan (ER visit) Extended-Release] pheniramine AdvReac Increased Verified 03/30/21 13:02 [From Theraflu Sinus and Blood Cold] Pressure phenylephrine AdvReac Increased Verified 03/30/21 13:02 [From Theraflu Sinus and Blood Cold] Pressure Review of Systems ROS Statement: Those systems with pertinent positive or pertinent negative responses have been documented in the HPI. ROS Other: All systems not noted in ROS Statement are negative. Constitutional: Denies: fever Eyes: Denies: eye pain ENT: Denies: ear pain Respiratory: Denies: cough Cardiovascular: Denies: chest pain Endocrine: Denies: fatigue Gastrointestinal: Reports: as per HPI, nausea, vomiting Genitourinary: Denies: dysuria Musculoskeletal: Denies: back pain Skin: Denies: rash Neurological: Denies: weakness Past Medical History Past Medical History: Asthma, Cancer, GERD/Reflux, Hypertension, Thyroid Disorder Additional Past Medical History / Comment(s): hiatal hernia, hx. skin cancer, IBS, diverticulitis, allergy induced asthma, breast cancer, rectocele History of Any Multi-Drug Resistant Organisms: None Reported Past Surgical History: Cholecystectomy, Tubal Ligation, Uterine Ablation Additional Past Surgical History / Comment(s): sinus surgery, left lumph node removal to left side Past Anesthesia/Blood Transfusion Reactions: No Reported Reaction Past Psychological History: ADD/ADHD Smoking Status: Never smoker Past Alcohol Use History: Occasional Past Drug Use History: None Reported - Past Family History Mother Family Medical History: No Reported History Additional Family Medical History / Comment(s): Triple bypass Father Family Medical History: Cancer Additional Family Medical History / Comment(s): Pacer General Exam Limitations: no limitations General appearance: alert, in no apparent distress Head exam: Present: normocephalic Eye exam: Present: normal appearance Neck exam: Present: normal inspection Respiratory exam: Present: normal lung sounds bilaterally Cardiovascular Exam: Present: regular rate, normal rhythm Expanded Peripheral pulses: 2+: Dorsalis Pedis (R), Dorsalis Pedis (L) GI/Abdominal exam: Present: soft, tenderness (Mild left-sided tenderness), normal bowel sounds. Absent: distended, guarding, rebound, rigid Extremities exam: Present: normal inspection Neurological exam: Present: alert Psychiatric exam: Present: normal affect, normal mood Skin exam: Present: normal color Course Vital Signs 03/30/21 03/30/21 09:47 12:11 Temperature 98.7 F Pulse Rate 88 94 Respiratory 18 18 Rate Blood Pressure 147/95 124/77 O2 Sat by Pulse 98 96 Oximetry Medical Decision Making - Medical Decision Making Patient reevaluated and resting comfortably in bed. Patient updated on results and need for follow-up. - Lab Data Result diagrams: 03/30/21 11:54 03/30/21 11:54 Lab Results 03/30/21 03/30/21 03/30/21 Range/Units 11:54 11:54 11:54 WBC 5.7 (3.8-10.6) k/uL RBC 4.60 (3.80-5.40) m/uL Hgb 15.2 (11.4-16.0) gm/dL Hct 44.6 (34.0-46.0) % MCV 97.1 (80.0-100.0) fL MCH 33.0 (25.0-35.0) pg MCHC 34.0 (31.0-37.0) g/dL RDW 12.7 (11.5-15.5) % Plt Count 391 (150-450) k/uL MPV 7.4 Neutrophils % 66 % Lymphocytes % 26 % Monocytes % 4 % Eosinophils % 2 % Basophils % 1 % Neutrophils # 3.8 (1.3-7.7) k/uL Lymphocytes # 1.5 (1.0-4.8) k/uL Monocytes # 0.2 (0-1.0) k/uL Eosinophils # 0.1 (0-0.7) k/uL Basophils # 0.1 (0-0.2) k/uL PT (9.0-12.0) sec INR (<1.2) APTT (22.0-30.0) sec Sodium 139 (137-145) mmol/L Potassium 4.5 (3.5-5.1) mmol/L Chloride 105 (98-107) mmol/L Carbon Dioxide 24 (22-30) mmol/L Anion Gap 10 mmol/L BUN 13 (7-17) mg/dL Creatinine 0.64 (0.52-1.04) mg/dL Est GFR (CKD-EPI)AfAm >90 (>60 ml/min/1.73 sqM) Est GFR (CKD-EPI)NonAf >90 (>60 ml/min/1.73 sqM) Glucose 90 (74-99) mg/dL Calcium 10.0 (8.4-10.2) mg/dL Total Bilirubin 0.5 (0.2-1.3) mg/dL AST 34 (14-36) U/L ALT 48 H (4-34) U/L Alkaline Phosphatase 87 (38-126) U/L Total Protein 8.0 (6.3-8.2) g/dL Albumin 4.7 (3.5-5.0) g/dL Amylase 66 (30-110) U/L Lipase 269 (23-300) U/L Urine Color Light Yellow Urine Appearance Clear (Clear) Urine pH 6.0 (5.0-8.0) Ur Specific [place] 1.012 (1.001-1.035) Urine Protein Negative (Negative) Urine Glucose (UA) Negative (Negative) Urine Ketones Negative (Negative) Urine Blood Trace H (Negative) Urine Nitrite Negative (Negative) Urine Bilirubin Negative (Negative) Urine Urobilinogen <2.0 (<2.0) mg/dL Ur Leukocyte Esterase Negative (Negative) Urine RBC 1 (0-5) /hpf Urine WBC 1 (0-5) /hpf Ur Squamous Epith Cells 1 (0-4) /hpf Urine Bacteria Rare H (None) /hpf Urine Mucus Rare H (None) /hpf 03/30/21 Range/Units 11:54 WBC (3.8-10.6) k/uL RBC (3.80-5.40) m/uL Hgb (11.4-16.0) gm/dL Hct (34.0-46.0) % MCV (80.0-100.0) fL MCH (25.0-35.0) pg MCHC (31.0-37.0) g/dL RDW (11.5-15.5) % Plt Count (150-450) k/uL MPV Neutrophils % % Lymphocytes % % Monocytes % % Eosinophils % % Basophils % % Neutrophils # (1.3-7.7) k/uL Lymphocytes # (1.0-4.8) k/uL Monocytes # (0-1.0) k/uL Eosinophils # (0-0.7) k/uL Basophils # (0-0.2) k/uL PT 10.2 (9.0-12.0) sec INR 0.9 (<1.2) APTT 22.2 (22.0-30.0) sec Sodium (137-145) mmol/L Potassium (3.5-5.1) mmol/L Chloride (98-107) mmol/L Carbon Dioxide (22-30) mmol/L Anion Gap mmol/L BUN (7-17) mg/dL Creatinine (0.52-1.04) mg/dL Est GFR (CKD-EPI)AfAm (>60 ml/min/1.73 sqM) Est GFR (CKD-EPI)NonAf (>60 ml/min/1.73 sqM) Glucose (74-99) mg/dL Calcium (8.4-10.2) mg/dL Total Bilirubin (0.2-1.3) mg/dL AST (14-36) U/L ALT (4-34) U/L Alkaline Phosphatase (38-126) U/L Total Protein (6.3-8.2) g/dL Albumin (3.5-5.0) g/dL Amylase (30-110) U/L Lipase (23-300) U/L Urine Color Urine Appearance (Clear) Urine pH (5.0-8.0) Ur Specific [place] (1.001-1.035) Urine Protein (Negative) Urine Glucose (UA) (Negative) Urine Ketones (Negative) Urine Blood (Negative) Urine Nitrite (Negative) Urine Bilirubin (Negative) Urine Urobilinogen (<2.0) mg/dL Ur Leukocyte Esterase (Negative) Urine RBC (0-5) /hpf Urine WBC (0-5) /hpf Ur Squamous Epith Cells (0-4) /hpf Urine Bacteria (None) /hpf Urine Mucus (None) /hpf - Radiology Data Radiology results: report reviewed (Enteritis) Disposition Clinical Impression: Enteritis Disposition: HOME SELF-CARE Condition: Stable Instructions (If sedation given, give patient instructions): Enteritis (ED), Abdominal Pain (ED), Constipation (ED), High Fiber Diet (ED) Additional Instructions: Prescription has been sent to pharmacy. These follow-up with primary care physician in the next day or 2 for recheck. Return for uncontrolled vomiting, fever, pain increased, worsening symptoms or other concerns. Prescriptions: Metoclopramide HCl [Reglan] 10 mg PO Q6HR PRN #15 tablet PRN Reason: Nausea Is patient prescribed a controlled substance at d/c from ED?: No Referrals: Maycol Nash MD [Primary Care Provider] - 1-2 days Time of Disposition: 14:27
[2021-03-30 12:30] LABS: Basophils # (A) 0.1 k/uL (0-0.2); Basophils % (A) 1 %; Eosinophils # (A) 0.1 k/uL (0-0.7); Eosinophils % (A) 2 %; HCT 44.6 % (34.0-46.0); HGB 15.2 gm/dL (11.4-16.0); Lymphocytes # (A) 1.5 k/uL (1.0-4.8); Lymphocytes % (A) 26 %; MCV 97.1 fL (80.0-100.0); Mean Platelet Volume 7.4; Monocytes # (A) 0.2 k/uL (0-1.0); Monocytes % (A) 4 %; Neutrophils # (A) 3.8 k/uL (1.3-7.7); Neutrophils % (A) 66 %; Platelet Count 391 k/uL (150-450); RDW 12.7 % (11.5-15.5); WBC 5.7 k/uL (3.8-10.6)
[2021-03-30 12:41] LABS: ALT 48 U/L (4-34); AST 34 U/L (14-36); African American GFR (CKD) >90 (>60 ml/min/1.73 sqM); Albumin 4.7 g/dL (3.5-5.0); Alkaline Phosphatase 87 U/L (38-126); Amylase 66 U/L (30-110); Anion Gap 10 mmol/L; Blood Urea Nitrogen 13 mg/dL (7-17); Carbon Dioxide 24 mmol/L (22-30); Chloride 105 mmol/L (98-107); Glucose 90 mg/dL (74-99); Lipase 269 U/L (23-300); Non-African American GFR(CKD) >90 (>60 ml/min/1.73 sqM); Potassium 4.5 mmol/L (3.5-5.1); Sodium 139 mmol/L (137-145); Total Bilirubin 0.5 mg/dL (0.2-1.3)
[2021-03-30 12:43] LABS: INR 0.9 (<1.2); Partial Thromboplastin Time 22.2 sec (22.0-30.0); Prothrombin Time 10.2 sec (9.0-12.0)
[2021-03-30 13:03] LABS: Appearance,Urine Clear (Clear); Bacteria,Urine Rare /hpf; Bilirubin,Urine Negative (Negative); Blood,Urine Trace (Negative); Color,Urine Light Yellow; Glucose,Urine (UA) Negative (Negative); Ketones,Urine Negative (Negative); Leukocyte Esterase,Urine Negative (Negative); Mucus,Urine Rare /hpf; Nitrite,Urine Negative (Negative); Protein,Urine Negative (Negative); RBC,Urine 1 /hpf (0-5); Specific Gravity,Urine 1.012 (1.001-1.035); Squamous Epithelial Cell,Urine 1 /hpf (0-4); Urobilinogen,Urine <2.0 mg/dL (<2.0); WBC,Urine 1 /hpf (0-5)
--- NOTE | 2021-03-30 14:05 | CT ---
EXAMINATION TYPE: CT abdomen pelvis w con DATE OF EXAM: 03/30/2021 COMPARISON: CT dated 07/10/2020 HISTORY: Generalized pain. CT DLP: 954.4 mGycm Automated exposure control for dose reduction was used. TECHNIQUE: Helical acquisition of images from the lung bases through the pelvis have been completed. CONTRAST: Performed without Oral Contrast and with IV Contrast, patient injected with 100 mL of Isovue 300. FINDINGS: LUNG BASES: No significant abnormality is appreciated. AORTA: No significant abnormality is appreciated. LIVER/GB: No significant interval change, patient is postcholecystectomy, there is a low dense focus in the right lobe which is stable is appreciated. Diffuse low density within the liver likely due to hepatic steatosis. PANCREAS: No significant abnormality is seen. SPLEEN: No significant abnormality is seen. ADRENALS: No significant abnormality is seen. KIDNEYS: No significant abnormality is seen. REPRODUCTIVE ORGANS: No significant abnormality is seen BOWEL: There are some fluid-filled slightly distended loops of small bowel. FREE AIR: No Free Air visible. ASCITES: None visible. PELVIC ADENOPATHY: None visualized. RETROPERITONEAL ADENOPATHY: No Retroperitoneal Adenopathy visible. URINARY BLADDER: No significant abnormality is seen. OSSEOUS STRUCTURES: No significant abnormality is seen. IMPRESSION: NO SIGNIFICANT INTERVAL CHANGE. POSTOPERATIVE CHANGE, CORRELATE FOR HEPATIC STEATOSIS, POSSIBLE ENTER ITIS.
[2021-03-30 14:47] VITALS: BP 129/89; PULSE 86
== END 2021-03-30 14:47 | disposition home or self-care (01) ==
LOC: EC 09:43
DX: R68.83 Chills (without fever) (principal); K52.9 Noninfective gastroenteritis and colitis, unspecified; J45.909 Unspecified asthma, uncomplicated; K21.9 Gastro-esophageal reflux disease without esophagitis; I10 Essential (primary) hypertension; E07.9 Disorder of thyroid, unspecified; Z90.49 Acquired absence of other specified parts of digestive tract; Z79.899 Other long term (current) drug therapy; Z79.890 Hormone replacement therapy; Z88.8 Allergy status to other drugs, medicaments and biological substances
CPT/HCPCS: 36415; 80053; 82150; 83690; 85025; 85610; 85730; 81001; 74177; 99284; 96374; 96375; 96361; J2405; Q9967

== ENCOUNTER → 2021-05-09 | Outpatient (CLI) | payer BC ==
--- NOTE | 2021-05-09 09:51 | FL ---
ESOPHOGRAM. HISTORY: Dysphagia Esophagram was performed per the air contrast technique. The patient swallowed barium and effervesce nt crystals without difficulty or delay. Esophageal peristalsis and motility appear to be within normal limits. There is no evidence for filling defect, mass or diverticulum. No hiatal hernia seen. Subsequently single contrast cervical esophagram was performed which fails demonstrate evidence for a spiration penetration or mass. IMPRESSION: Unremarkable study.
== END | disposition home or self-care (01) ==
LOC: RADUSWWP 08:40
PROVIDERS: ATTEND Family Medicine
DX: K44.9 Diaphragmatic hernia without obstruction or gangrene (principal)
CPT/HCPCS: 74220

== ENCOUNTER → 2021-05-29 | Outpatient (CLI) | payer BC | END | disposition home or self-care (01) | LOC: LABPAT 08:08 | PROVIDERS: ATTEND Obstetrics & Gynecology | DX: Z53.9 Procedure and treatment not carried out, unspecified reason (principal) ==

== ENCOUNTER 2021-06-07 05:37 | Day surgery (SDC) | payer BC ==
[2021-05-29 09:26] LABS: African American GFR (CKD) >90 (>60 ml/min/1.73 sqM); Anion Gap 10 mmol/L; Blood Urea Nitrogen 15 mg/dL (7-17); Calcium 9.1 mg/dL (8.4-10.2); Carbon Dioxide 26 mmol/L (22-30); Chloride 103 mmol/L (98-107); Glucose 97 mg/dL (74-99); Non-African American GFR(CKD) >90 (>60 ml/min/1.73 sqM); Potassium 4.2 mmol/L (3.5-5.1); Sodium 139 mmol/L (137-145)
[2021-05-29 09:34] LABS: Basophils % (A) 1 %; Eosinophils # (A) 0.1 k/uL (0-0.7); Eosinophils % (A) 3 %; HCT 42.1 % (34.0-46.0); HGB 13.5 gm/dL (11.4-16.0); Lymphocytes # (A) 1.5 k/uL (1.0-4.8); Lymphocytes % (A) 27 %; MCH 33.6 pg (25.0-35.0); MCHC 32.1 g/dL (31.0-37.0); MCV 104.4 fL (80.0-100.0); Macrocytosis Slight; Mean Platelet Volume 7.6; Monocytes # (A) 0.4 k/uL (0-1.0); Monocytes % (A) 6 %; Neutrophils # (A) 3.4 k/uL (1.3-7.7); Neutrophils % (A) 61 %; Platelet Count 327 k/uL (150-450); RBC 4.03 m/uL (3.80-5.40); RDW 12.4 % (11.5-15.5); WBC 5.5 k/uL (3.8-10.6)
[2021-06-03 15:53] VITALS: BMI 27.0
--- NOTE | 2021-06-06 07:56 | P.HPOB ---
History of Present Illness H&P Date: 06/06/21 Chief Complaint: Symptomatic rectocele This patient is a pleasant 51 yr female who presented to me with complaints of symptomatic rectocele. Examination has shown an isolated grade III rectocele. We discussed options for treatment and she desires rectocele repair. Review of Systems Genitourinary: Reports as per HPI Past Medical History Past Medical History: Asthma, Cancer, GERD/Reflux, Hyperlipidemia, Hypertension, Sleep Apnea/CPAP/BIPAP, Thyroid Disorder Additional Past Medical History / Comment(s): hiatal hernia, hx. skin cancer, diverticulitis, allergy induced asthma, hx breast cancer, rectocele, no cpap used, hashimotos, History of Any Multi-Drug Resistant Organisms: None Reported Past Surgical History: Back Surgery, Breast Surgery, Cholecystectomy, Tubal Ligation, Uterine Ablation Additional Past Surgical History / Comment(s): sinus surgery, mult lymph node removals to left side, left breast lumpectomy, doug breast reduction, L5 S1 disk removed, Past Anesthesia/Blood Transfusion Reactions: No Reported Reaction Past Psychological History: No Psychological Hx Reported Smoking Status: Former smoker Past Alcohol Use History: None Reported Past Drug Use History: None Reported - Past Family History Mother Family Medical History: No Reported History Additional Family Medical History / Comment(s): Triple bypass Father Family Medical History: Cancer Additional Family Medical History / Comment(s): skin cancer Medications and Allergies Home Medications Medication Instructions Recorded Confirmed Type Omeprazole 40 mg PO HS 01/02/17 06/03/21 History Albuterol Inhaler [Ventolin Hfa 2 puff INHALATION RT-QID PRN 03/30/21 06/03/21 History Inhaler] Famotidine 40 mg PO DAILY 03/30/21 06/03/21 History Levothyroxine Sodium 150 mcg PO DAILY 03/30/21 06/03/21 History Liraglutide [Saxenda] 3 mg INJ DAILY 03/30/21 06/03/21 History Losartan Potassium [Cozaar] 100 mg PO DAILY 03/30/21 06/03/21 History Metoprolol Succinate [Toprol XL] 25 mg PO DAILY 03/30/21 06/03/21 History Tamoxifen Citrate 20 mg PO DAILY 03/30/21 06/03/21 History Docusate [Colace] 100 mg PO DAILY 06/03/21 06/03/21 History Allergies Allergy/AdvReac Type Severity Reaction Status Date / Time adhesive Allergy Unknown Verified 06/03/21 15:54 niacin AdvReac Severe Red skin Verified 06/03/21 15:54 [From Niaspan (ER visit) Extended-Release] nickel AdvReac blisters Verified 06/03/21 15:54 pheniramine AdvReac Increased Verified 06/03/21 15:54 [From Theraflu Sinus and Blood Cold] Pressure phenylephrine AdvReac Increased Verified 06/03/21 15:54 [From Theraflu Sinus and Blood Cold] Pressure EKG pads Allergy blisters Uncoded 06/03/21 15:54 Exam - OBG Physical Exam Abdomen: bowel sounds normal, no diffuse tenderness, no bruit present, no guarding noted, no hepatomegaly, no splenomegaly, no mass Vulva: both: normal Vagina: normal moisture, no discharge, rectocele (Grade III rectocele) Cervix: no lesion, no discharge Uterus: normal size, normal contour Results Result Diagrams: 05/29/21 08:48 05/29/21 08:48 Assessment and Plan Assessment: This is a pleasant 51 yr old female with symptomatic grade III rectocele. Appears isolated. Plan is rectocele repeat with perineoplasty. I have discussed this surgery with Deirdre including risks of infection, bleeding, pelvic pain, and possible recurrence. All of her questions were answered and a written consent obtained. (1) Rectocele Status: Chronic Code(s): N81.6 - RECTOCELE SNOMED Code(s): 4503711
[2021-06-07] MEDS ORDERED: MIDAZOLAM 2 MG/2 ML VIAL IV PRN (05:51)
[2021-06-07] MEDS ORDERED: ONDANSETRON 4 MG/2 ML VIAL IVP ONE (05:51)
[2021-06-07] MEDS ORDERED: DEXAMETHASONE SOD PHOSPHATE 4 MG/ML 1 ML VIAL IV ONE (05:51)
[2021-06-07] MEDS ORDERED: LACTATED RINGERS 1,000 ML IV SCH ×2 (05:51→10:15)
[2021-06-07] MEDS ORDERED: SCOPOLAMINE 1.5MG/72HR PATCH TRANSDERM ONE (05:51)
[2021-06-07] MEDS ORDERED: ONDANSETRON 4 MG/2 ML VIAL ONE (06:02)
[2021-06-07] MEDS ORDERED: LACTATED RINGERS 1,000 ML IV ONE (06:11)
[2021-06-07 06:20] LABS: Glucose,Whole Blood 95 mg/dL (75-99)
[2021-06-07] MEDS ORDERED: HYDROmorphone 0.5 MG/0.5 ML SYRINGE IVP PRN (07:00)
[2021-06-07] MEDS ORDERED: LIDOCAINE 1% INJ 10MG/ML (20 ML MDV) ONE (07:25)
[2021-06-07] MEDS ORDERED: .fentaNYL (PF) 50 MCG/ML 2 ML AMP ONE (07:25)
[2021-06-07] MEDS ORDERED: PROPOFOL 10 MG/ML 20 ML VIAL IV ONE (07:25)
[2021-06-07] MEDS ORDERED: KETOROLAC 15 MG/ML 1 ML VIAL ONE (07:25)
[2021-06-07] MEDS ORDERED: MIDAZOLAM 2 MG/2 ML VIAL ONE (07:25)
[2021-06-07] MEDS ORDERED: VASOPRESSIN 20 UNIT/ML 1 ML VIAL SQ ONE (07:46)
[2021-06-07] MEDS ORDERED: BACITRACIN ZINC 500 UNIT/GM OINT 28.4 GM TUBE TOPICAL ONE (07:51)
--- NOTE | 2021-06-07 08:20 | P.OP ---
Date of Procedure: 06/07/21 Preoperative Diagnosis: Symptomatic grade 3 rectocele Postoperative Diagnosis: Same Procedure(s) Performed: Repair of rectocele with perineoplasty Anesthesia: other (LMA) Surgeon: Flex Garcia [employer] Designer #1: Nilesh Min Estimated Blood Loss (ml): 15 Urine output (ml): 200 Pathology: other (Vaginal mucosa) Condition: stable Disposition: PACU Indications for Procedure: Please see dictated H&P for intimate details of this patient's admission. Brief summary this is a pleasant 51-year-old multiparous patient who has a symptomatic rectocele was isolated is requesting surgical repair. Patient I discussed the surgery and its risks including risks of infection, bleeding, possible recurrence and all of her questions have been answered. Written consent is obtained. Operative Findings: This patient had an isolated grade 3 rectocele and a enterocele as well Description of Procedure: This patient is taken to the operating room where she is laid in the supine position. She subsequent undergoes general anesthesia without incident. With an adequate level of anesthesia she's placed in dorsal lithotomy position. She has a vaginal perineal prep and drape. Examination under anesthesia shows a grade 3 rectocele without other significant prolapse at this time. Patient has her bladder drained for 200 mL of clear urine. With this done, 2 Allis clamps are placed on the posterior perineum. I infiltrate this area with dilute epi and saline. Using a scalpel I excise the the mucosa on the posterior perineum. Linear incision is then made on the posterior vaginal mucosa. Using Metzenbaums and sharp and blunt dissection the rectocele was dissected out. Of note there is also a fairly sizable enterocele which is reduced. Serial dissections done and the mucosal edges demarcated with Allis clamps. With complete dissection done, I then used a 0 Vicryl on a urology needle and place interrupted sutures to reduce the rectocele and enterocele. This completed the excess vaginal mucosa was excised. Starting at the apex, I then do a running 0 Vicryl suture locked fashion of the posterior mucosa. Excellent reapproximation is noted. The rest the perineoplasty is repaired with similar fashion. With this done she appears to be hemostatic. No packing is placed. All counts are correct 3. Patient is awakened from anesthesia and taken to the recovery room in sat isfactory condition.
[2021-06-07] MEDS ORDERED: SIMETHICONE 80 MG CHEWABLE PO PRN (10:15)
[2021-06-07] MEDS ORDERED: diphenhydrAMINE 50 MG/ML 1 ML VIAL IVP PRN (10:15)
[2021-06-07] MEDS ORDERED: ONDANSETRON 4 MG/2 ML VIAL IVP PRN (10:15)
[2021-06-07] MEDS ORDERED: Acetaminophen-Codeine 300-30mg TAB PO PRN (10:15)
[2021-06-07] MEDS: IBUPROFEN 600 MG TAB PO PRN (17:23)
[2021-06-07] MEDS ORDERED: BENZOCAINE/MENTHOL SPRAY 1 GM/SPRAY AEROSOL TOPICAL PRN (20:03)
[2021-06-07] MEDS: SENNOSIDES-DOCUSATE SODIUM 1 EACH TAB PO SCH (20:42)
[2021-06-08] MEDS: IBUPROFEN 600 MG TAB PO PRN (00:44)
--- NOTE | 2021-06-08 06:59 | P.PN ---
Progress Note - Text Progress Note Date: 06/08/21 Post operative day #1. Patient is resting without complaints. Vital signs are stable and she is afebrile. She is tolerating regular diet and urinating without difficulty. My impression this is a normal postoperative course. Patient's felt be stable for discharge home follow up with me in 1 week.
--- NOTE | 2021-06-08 07:03 | P.DS ---
Providers Expected date of discharge: 06/08/21 Attending physician: Flex Garcia Primary care physician: Maycol Garciao - Discharge Diagnosis(es) (1) Rectocele Current Visit: No Status: Chronic Hospital Course: Please see dictated H&P for intimate details of this patient's admission. Brief summary this is a pleasant 51-year-old female with symptomatic grade 3 rectocele admitted for surgical treatment. Patient underwent a rectocele and enterocele repair with perineoplasty. Please see dictated operative note. Postoperatively the patient very well and on postoperative day #1 felt be stable for discharge home follow up with me in 6 weeks. Procedures: Repair of rectocele, enterocele and perineoplasty Patient Condition at Discharge: Good Plan - Discharge Summary Discharge Rx Participant: No New Discharge Prescriptions: New Sennosides-Docusate Sodium [Senokot-S] 2 each PO BID #30 tab Ibuprofen [Motrin] 600 mg PO Q6HR PRN #30 tab PRN Reason: Mild Discomfort No Action Omeprazole 40 mg PO HS Metoprolol Succinate [Toprol XL] 25 mg PO DAILY Losartan Potassium [Cozaar] 100 mg PO DAILY Levothyroxine Sodium 150 mcg PO DAILY Famotidine 40 mg PO DAILY Docusate [Colace] 100 mg PO DAILY Tamoxifen Citrate 20 mg PO DAILY Liraglutide [Saxenda] 3 mg INJ DAILY Albuterol Inhaler [Ventolin Hfa Inhaler] 2 puff INHALATION RT-QID PRN PRN Reason: Shortness Of Breath Discharge Medication List Omeprazole 40 mg PO HS 01/02/17 [History] Albuterol Inhaler [Ventolin Hfa Inhaler] 2 puff INHALATION RT-QID PRN 03/30/21 [History] Famotidine 40 mg PO DAILY 03/30/21 [History] Levothyroxine Sodium 150 mcg PO DAILY 03/30/21 [History] Liraglutide [Saxenda] 3 mg INJ DAILY 03/30/21 [History] Losartan Potassium [Cozaar] 100 mg PO DAILY 03/30/21 [History] Metoprolol Succinate [Toprol XL] 25 mg PO DAILY 03/30/21 [History] Tamoxifen Citrate 20 mg PO DAILY 03/30/21 [History] Docusate [Colace] 100 mg PO DAILY 06/03/21 [History] Ibuprofen [Motrin] 600 mg PO Q6HR PRN #30 tab 06/08/21 [Rx] Sennosides-Docusate Sodium [Senokot-S] 2 each PO BID #30 tab 06/08/21 [Rx] Follow up Appointment(s)/Referral(s): Flex Garcia MD [STAFF PHYSICIAN] - 06/20/21 8:30 am Patient Instructions/Handouts: Rectocele (GEN), Posterior Vaginal Repair (DC) Activity/Diet/Wound Care/Special Instructions: No intercourse or anything per vagina for 6 weeks. Please call if fever, chills, excessive vaginal bleeding, and/or abdominal pain. Discharge Disposition: HOME SELF-CARE
[2021-06-08] MEDS ORDERED: ACETAMINOPHEN TAB 325 MG TAB PO PRN (07:25)
[2021-06-08 11:38] VITALS: BP 123/75; PULSE 89; RESP 14; TEMP 98.3
[2021-06-08] MEDS: SENNOSIDES-DOCUSATE SODIUM 1 EACH TAB PO SCH (11:39)
== END 2021-06-08 11:42 | disposition home or self-care (01) ==
LOC: OR 05:37 → 4FBP 07:22 → OR 06-08 11:42
PROVIDERS: ATTEND Obstetrics & Gynecology
DX: N81.6 Rectocele (principal); Z20.822 Contact with and (suspected) exposure to COVID-19; N81.5 Vaginal enterocele; J45.909 Unspecified asthma, uncomplicated; K21.9 Gastro-esophageal reflux disease without esophagitis; E78.5 Hyperlipidemia, unspecified; I10 Essential (primary) hypertension; Z85.3 Personal history of malignant neoplasm of breast; Z87.891 Personal history of nicotine dependence; E06.3 Autoimmune thyroiditis; Z85.828 Personal history of other malignant neoplasm of skin; Z88.8 Allergy status to other drugs, medicaments and biological substances; Z91.048 Other nonmedicinal substance allergy status; Z79.899 Other long term (current) drug therapy
CPT/HCPCS: 81025; 86900; 86901; 80048; 85025; 86850; 87635; 93005; 45560; J2250; J1100; J0690; J2405; J2001; J3010; J1885; J2704; J1170; 88302

== ENCOUNTER → 2021-07-18 | Outpatient (CLI) | payer BC ==
--- NOTE | 2021-07-19 08:27 | USB ---
Reason for exam: clinical finding. History: Patient has history of breast cancer at age 49 and has history of other cancer at age 43. Reductions of both breasts, April 2019. Lumpectomy of the left breast, April 2019. Radiation therapy of the left breast, April 2019. Malignant US biopsy breast VAD LT of the left breast, March 25, 2019. Malignant US biopsy breast add'l VAD LT of the left breast, March 25, 2019. Took hormonal contraceptives for 7 years beginning at age 21. Taking antineoplastic for 2 years beginning at age 49. Physical Findings: Nurse Summary: patient states left side becomes inflamed intermittently (nurse dw). US Breast LT Left complete breast ultrasound includes all four quadrants, the retroareolar region and axilla. Finding demonstrates a 0.6 x 0.4 x 0.7cm mixed lesion at 1 o'clock. These results were verbally communicated with the patient and result sheet given to the patient on 07/18/21. ASSESSMENT: Suspicious, BI-RAD 4 RECOMMENDATION: Aspiration of the left breast. (1 o'clock) Called Dr. Shanks's office with mammographic findings. Ultrasound core/aspiration scheduled for 08/08/21 at 12:00. PRELIMINARY REPORT CALLED AND FAXED TO DR. SHANKS ON 07/19/21.
== END | disposition home or self-care (01) ==
LOC: RADUSWWP 08:39
PROVIDERS: ATTEND Internal Medicine Hematology & Oncology
DX: N64.4 Mastodynia (principal); N63.0 Unspecified lump in unspecified breast